=== PATIENT | male | born 1945 | race Caucasian/White ===

== ENCOUNTER 2016-09-12 16:41 | Inpatient (IN) ==
--- NOTE | 2016-09-12 21:17 | Diag Imaging Result Doc PS360 ---
EXAM: HEAD W/O CONTRAST TECHNIQUE: Dose reduction protocol was used. INDICATION: AMS, 3 PREV CVA COMPARISON: 04/01/2016 FINDINGS: There is stable encephalomalacia involving the right frontal lobe with adjacent ex vacuo dilatation of the right lateral ventricle. There is mild patchy low attenuation in the left frontal periventricular white matter suggesting mild microangiopathy, stable. There is no definite acute infarct given the limited sensitivity of CT versus MRI. There is no discrete intracranial mass, mass effect, or intracranial hemorrhage. The surrounding soft tissues and bony structures are essentially unremarkable. IMPRESSION: Stable chronic changes as described. No evidence of acute intracranial pathology. Electronically signed by Romel Cancino 09/12/2016 9:15 PM
[2016-09-12 21:38] LABS: MANUAL DIFF NEEDED? NO
[2016-09-12 21:40] LABS: BASO% 0.5 % (0.0-0.8); EOS# 0.15 X1000 (0.0-0.7); EOS% 2.7 % (0.0-10.0); HEMATOCRIT 38.5 % (42.0-52.0); HEMOGLOBIN 13.3 g/dL (14.0-18.0); LYMPH# 2.03 X1000 (1.2-3.4); LYMPH% 36.8 % (20.5-51.1); MCH 32.9 PG (27-31); MCHC 34.5 g/dL (33-37); MCV 95.3 FL (81-99); MONO% 9.1 % (1.7-9.3); MPV 9.3 FL (7.4-10.4); NEUT% 50.9 % (42.2-75.2); PLT 233 X1000 (130-400); RBC 4.04 XMIL (4.7-6.1)
[2016-09-12 21:49] LABS: INR 0.98; PROTIME 10.3 Seconds (9.2-11.7); PTT 28.7 Seconds (22.0-36.0)
[2016-09-12 22:04] LABS: CALCIUM 8.9 mg/dL (8.8-10.2); POTASSIUM 4.1 mmol/L (3.5-5.1); TOTAL BILIRUBIN 0.6 mg/dL (0.20-1.00); TOTAL PROTEIN 6.8 g/dL (6.3-8.3)
--- NOTE | 2016-09-12 23:00 | PROVIDER DOCUMENTATION ---
HPI-General Adult - General Chief Complaint: Fatigue Stated Complaint: HINDS,RT LOWER ABD PAIN Time Seen by Provider: 09/12/16 18:13 Source: patient Allergies/Adverse Reactions: Patient Allergies Allergy/AdvReac Type Severity Reaction Status Date / Time meperidine HCl * Allergy Unknown ANAPHYLAXIS Verified 09/12/16 19:46 [From Demerol] NSAIDS (Non-Steroidal AdvReac Unknown Verified 09/12/16 19:46 Anti-Inflamma Home Medications: Home Medication List Medication Instructions Recorded Confirmed Last Taken Type ATORVAstatin [Lipitor] 80 mg PO HS 03/25/12 09/12/16 09/11/16 History Methocarbamol 750 mg PO TID 03/25/12 09/12/16 09/11/16 History Tamsulosin HCl 0.4 mg PO QHS 03/25/12 09/12/16 09/11/16 History Potassium Chloride 10 meq PO DAILY #30 tablet.er 04/16/12 09/12/16 09/11/16 Rx Furosemide [Lasix] 20 mg PO DAILY 05/29/14 09/12/16 09/11/16 History Sucralfate [Carafate Liquid] 1 gm PO BID 07/27/14 09/12/16 09/11/16 History Latanoprost 0.005% Oph Soln 1 drop BOTH EYES HS 10/20/14 09/12/16 09/11/16 History [Xalatan 0.005% Oph Soln] Omeprazole 20 mg PO DAILY 04/02/16 09/12/16 09/11/16 History - History of Present Illness -Gen Adult Nature of Presenting Problems: Pt is a 71 y/o M c chief complaint of generalized fatigue and "growginess" x 1 day. Pt states that he had cold sweats last night then woke up this morning feeling fatigued. 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 He denies any new neuro focal weakness and his states he is normal in appearance and speech. Pt is concerned he may have had another CVA. On arrival, pt is in minimal distress. Review of Systems - Adult - REVIEW OF SYSTEMS - ADULT Constitutional: reports: see HPIalyce. denies: chills Eyes: reports: no symptoms reported. denies: blurred vision, double vision Ears, Nose, Mouth & Throat: reports: no symptoms reported. denies: ear pain, nose pain Cardiovascular: reports: no symptoms reported. denies: chest pain, orthopnea Respiratory: reports: no symptoms reported. denies: cough, shortness of breath , wheezing Gastrointestinal: reports: no symptoms reported. denies: abdominal pain, nausea Genitourinary: reports: no symptoms reported. denies: dysuria, hematuria Musculoskeletal: reports: no symptoms reported. denies: bone pain, joint pain Integumentary: reports: no symptoms reported. denies: mole changes, nail changes Neurological: reports: no symptoms reported. denies: numbness, paresthesia Psychiatric: reports: no symptoms reported. denies: anxiety, emotional problems Endocrine: reports: no symptoms reported. denies: cold intolerance, heat intolerance Hematologic/Lymphatic: reports: no symptoms reported. denies: blood clots, low blood count Allergic/Immunologic: reports: no symptoms reported. denies: allergic reactions , food allergy All Other Systems: Reviewed and Negative Past History - Adult - PAST MEDICAL HISTORY-ADULT Review of Records: reports: Old Records Reviewed, Nursing Assessment Review, Medications Reviewed, Social history reviewed & non-contributory. Major Childhood Illnesses: reports: denies history Cardiovascular: reports: aortic disease (AAA), CAD, HTN, hyperlipidemia Respiratory: reports: denies history Gastrointestinal: reports: other (abdominal aortic aneurysm) Obstetrical/Gynecological: reports: denies history Genitourinary: reports: kidney stones Musculoskeletal: reports: chronic pain (back pain), intervertebral disc disease Neurological: reports: CVA, other (vasovagal syncope) Endocrine/Immune: reports: denies history Other Conditions: reports: denies history - PRIOR SURGERIES/PROCEDURES Surgical/Procedure History: reports: appendectomy, CABG, cholecystectomy, orthopedic (extremity), other (AAA repair) - PRIOR HOSPITALIZATIONS Prior Hospitalizations: reports: for other non-related - IMMUNIZATION STATUS Childhood Immunizations: See Nurse Assessment Flu Vaccine: See Nurse Assessment - FAMILY HISTORY Family History: CAD over 55 yo, other (CHF) - SOCIAL HISTORY Smoking: denies Substance Use: none/never Alcohol Use Frequency: never Living Situation: family Physical Exam-General - PHYSICAL EXAM-ADULT Initial Vital Signs Reviewed: Yes - CONSTITUTIONAL General Appearance: alert, no apparent distress - EYES Eyes: PERRL/EOMI, pink conjunctivae - HEAD, EARS, NOSE, MOUTH & THROAT HENMT: normocephalic/atraumatic, moist mucous membranes, normal ENT inspection - NECK Neck: normal inspection - RESPIRATORY Respiratory: chest non-tender, lungs clear, normal breath sounds - CARDIOVASCULAR Cardiovascular: normal peripheral pulses, regular rate, rhythm - GASTROINTESTINAL (ABDOMEN) Abdominal Exam: normal bowel sounds, non tender, soft - LYMPHATIC Lymphatic: no adenopathy - MUSCULOSKELETAL Back Exam: normal inspection, no CVA tenderness, no vertebral tenderness Extremity: normal range of motion, non-tender, normal inspection - SKIN Integumentary: normal color, normal turgor, warm/dry - NEUROLOGIC Neurologic: grossly normal, no motor/sensory deficits - PSYCHIATRIC Psych/Mental Status: normal mood/affect, normal thought content, normal thought process, oriented x 3 Progress - PLAN OF CARE/RESULTS Progress/Plan/Lab Results: Vital Signs - 8 hr 09/12/16 16:48 Temperature 99.3 F Pulse Rate 64 Respiratory Rate 18 Blood Pressure 154/91 O2 Sat by Pulse Oximetry 97 Laboratory Results - last 24 hr 09/12/16 09/12/16 09/12/16 21:29 21:29 21:29 WBC 5.52 RBC 4.04 L Hgb 13.3 L Hct 38.5 L MCV 95.3 MCH 32.9 H MCHC 34.5 RDW Std Deviation 12.9 Plt Count 233 MPV 9.3 Immature Gran % (Auto) 0.0 Neut % (Auto) 50.9 Lymph % (Auto) 36.8 Wagoner % (Auto) 9.1 Eos % (Auto) 2.7 Baso % (Auto) 0.5 Immature Gran # (Auto) 0.00 Neut # (Auto) 2.81 Lymph # (Auto) 2.03 [place]agoner # (Auto) 0.50 Eos # (Auto) 0.15 Baso # (Auto) 0.03 PT INR PTT (Actin FS) Sodium 141 Potassium 4.1 Chloride 102 Carbon Dioxide 26 Anion Gap 13 BUN 15 Creatinine 1.4 H Estimated GFR/1.73 m2 50 BUN/Creatinine Ratio 11 Glucose 84 Calculated Osmolality 281 Calcium 8.9 Total Bilirubin 0.60 AST 15 ALT 19 Alkaline Phosphatase 68 Creatine Kinase 47 Troponin T Total Protein 6.8 Albumin 4.0 Globulin 2.8 Albumin/Globulin Ratio 1.4 Plasma/Serum Ethyl Alc 09/12/16 09/12/16 21:29 21:29 WBC RBC Hgb Hct MCV MCH MCHC RDW Std Deviation Plt Count MPV Immature Gran % (Auto) Neut % (Auto) Lymph % (Auto) [place]agoner % (Auto) Eos % (Auto) Baso % (Auto) Immature Gran # (Auto) Neut # (Auto) Lymph # (Auto) [place]er # (Auto) Eos # (Auto) Baso # (Auto) PT 10.3 INR 0.98 PTT (Actin FS) 28.7 Sodium Potassium Chloride Carbon Dioxide Anion Gap BUN Creatinine Estimated GFR/1.73 m2 BUN/Creatinine Ratio Glucose Calculated Osmolality Calcium Total Bilirubin AST ALT Alkaline Phosphatase Creatine Kinase Troponin T < 0.010 Total Protein Albumin Globulin Albumin/Globulin Ratio Plasma/Serum Ethyl Alc Orders Category Date Time Status Saline Loc NOW Care 09/12/16 20:22 Active CHEST-PORTABLE [RAD] Stat Exams 09/12/16 20:22 Taken HEAD W/O CONTRAST [CT] Stat Exams 09/12/16 20:22 Completed ALCOHOL BLOOD Stat Lab 09/12/16 21:29 Completed CBC WITH ELECTRONIC DIFF [HEME] Stat Lab 09/12/16 21:29 Completed CK PROFILE [SP CHEM] Stat Lab 09/12/16 21:29 Completed COMPREHENSIVE METABOLIC PANEL [CHEM] Stat Lab 09/12/16 21:29 Completed PROTIME WITH INR [COAG] Stat Lab 09/12/16 21:29 Completed PTT [COAG] Stat Lab 09/12/16 21:29 Completed TROPONIN T Stat Lab 09/12/16 21:29 Completed URINALYSIS W/POSS RFLX CULT-1 [URINALYSIS] Stat Lab 09/12/16 20:22 Uncollected URINE DRUG SCREEN Stat Lab 09/12/16 20:22 Uncollected Pulse Oximetry Stat Oth 09/12/16 20:22 Active EKG [EKG] Stat Ther 09/12/16 20:22 Ordered Result Diagrams: 09/12/16 21:29 09/12/16 21:29 - REASSESSMENT Reassessment #1 Time Reassessed: 22:59 (Pt c EKG showing sinus ericka at rate of 48.) Reassessment #2 Time Reassessed: 23:08 (Pt now c heart rate 42. He states he feels fatigued. After reviewing his records pt has been admitted for symptomatic bradycardia in March of this year and was evaluated by cardiology. He was taken off betablockers on discharge from the hospital. Discussed c Dr. English who agreed c admission. ) - CONSULTS/PCP/HOSPITALIST Notification #1 *Consult/PCP/Hospitalist*: Dr. Bernabe / Minor ALFARO (Hospitalist) Time Discussed: 23:28 Reason/Comments: Will admit pt and see in the ER. Departure - Departure Date of Disposition Decision: 09/12/16 Time of Disposition Decision: 23:27 DIAGNOSIS: Symptomatic bradycardia Disposition: ADMITTED INPATIENT 09 Certified Medical Emergency: Emergent Condition: Stable Referrals and Follow-Ups: Meño Nye MD [Primary Care Provider] - - Critical Care Note This patient required my direct & personal management of CC.: No Attestation - Physician/ THEA Attestation Patient care was provided by Advanced Practice Provider:: Yes Advanced Practice Provider:: Romel Hartman Advanced Practice Provider documentation review:: The Mid-level provider documentation, treatment plan and medical decision making was reviewed by the physician who agrees with all treatment and medical decision making by the MLP.
[2016-09-12 23:06] LABS: URINE CULTURE NEEDED? NO; URINE MICRO REVIEW NEEDED? NO; URINE SOURCE CLEAN CATCH
[2016-09-12 23:23] LABS: UR AMPHETAMINES QUAL NONE DETECTED (NONE DETECT); UR BARBITUATES QUAL NONE DETECTED (NONE DETECT); UR BENZODIAZEPIN QUAL NONE DETECTED (NONE DETECT); UR CANNABINOIDS QUAL NONE DETECTED (NONE DETECT); UR COCAINE QUAL NONE DETECTED (NONE DETECT); UR METHADONE QUAL NONE DETECTED (NONE DETECT); UR OPIATES QUAL NONE DETECTED (NONE DETECT); UR OXYCODONE QUAL NONE DETECTED (NONE DETECT); UR PCP QUAL NONE DETECTED (NONE DETECT)
[2016-09-12 23:28] LABS: BILIRUBIN URINE NEGATIVE (NEGATIVE); BLOOD URINE NEGATIVE (NEGATIVE); COLOR YELLOW; GLUCOSE URINE NEGATIVE (NEGATIVE); LEUKOCYTES URINE NEGATIVE (NEGATIVE); NITRITE URINE NEGATIVE (NEGATIVE); PH URINE 6.5; PROTEIN URINE NEGATIVE (NEGATIVE); SP GRAVITY URINE 1.015; TURBIDITY URINE CLEAR (CLEAR); UR EPITHELIAL CELLS <10 /HPF (<10); URINE BACTERIA NEGATIVE /HPF; URINE RBC <10 /HPF (<10); URINE WBC <10 /HPF (<10); UROBILINOGEN URINE NORMAL (NORMAL)
[2016-09-12] MEDS ORDERED: DUONEB (A & A) INH ONE (23:54)
[2016-09-13] MEDS ORDERED: NS 1,000 ML ONE (01:01)
[2016-09-13] MEDS: NS 1,000 ML IV SCH ×2 (01:15→20:42)
[2016-09-13] MEDS: LOVENOX SUBQ SCH ×2 (01:15→23:47)
--- NOTE | 2016-09-13 04:40 | HISTORY AND PHYSICAL ---
CHIEF COMPLAINT: Fatigue. PRIMARY CARE PROVIDER: Meño Nye MD EMBLEM DRAWER IN: Justin Orozco MD HISTORY OF PRESENT ILLNESS: Mr. Jane is a 71-year-old male who came in with a complaint of being groggy for the past day and states that he has had cold sweats that started last night. Woke up in the morning feeling fatigued. Went back to sleep. States that he woke up around December 10:30 this a.m. [place] as if he was "hungover." The patient denies drinking. 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 Left lower extremity weakness. Patient had his first stroke at age 17. He has also had coronary artery disease with CABG. Has other history of hypertension, hyperlipidemia, chronic kidney disease. At any rate, his laboratory data and CT scan on arrival to the emergency room were grossly normal. The CT was stable from previous examinations; however, an EKG showed sinus bradycardia with a rate of 42. He was admitted in March of this year for symptomatic bradycardia and all of his beta blockers were stopped. He will be admitted today for symptomatic bradycardia and placed on CICU for further monitoring. REVIEW OF SYSTEMS: Fourteen point review of systems conducted with the patient. Pertinent positives listed above in the HPI. All other systems reviewed and found to be negative. PAST MEDICAL HISTORY: 1. Coronary artery disease status post CABG in 2008. 2. AAA with subsequent repair. 3. Hypertension. 4. Hyperlipidemia. 5. Multiple CVAs, the first being at 17 with left-sided paralysis that has somewhat resolved. Left upper extremity does have some contracture. Left lower extremity is weakened, and a mild left-sided facial droop. 6. Kidney stones. 7. Chronic kidney disease. 8. GI bleed from large duodenal ulcer. 9. BPH. PREVIOUS SURGICAL HISTORY: 1. Cholecystectomy. 2. Back surgery. 3. Orthoscopic knee surgery. 4. Cervical spine surgery. 5. Triple A repair in 2006. 6. CABG 2008. SOCIAL HISTORY: Former smoker from teenage years, 1-3 packs of cigarettes per day. Stopped smoking in 2002. Did drink alcohol regularly when he was younger. Has not drank since then and he only used alcohol for roughly 4 years. 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 Currently lives with his mother, I believe. FAMILY HISTORY: Mother had a CVA as well as CVA maternal and paternal grandparents, and coronary artery disease in mother and father. ALLERGIES: Demerol and NSAIDs. HOME MEDICATIONS: 1. Lipitor 80 mg p.o. at bedtime. 2. Methocarbamol 750 mg p.o. t.i.d. 3. Flomax 0.4 mg p.o. at bedtime. 4. Potassium chloride 10 mEq p.o. daily. 5. Lasix 20 mg p.o. daily. 6. Carafate 1 g p.o. daily. 7. Xalatan 0.005 ophthalmic solution 1 drop both eyes at bedtime. 8. Omeprazole 20 mg p.o. daily. PHYSICAL EXAMINATION: VITAL SIGNS: Temp 97.4 degrees, pulse 42, respirations 18, blood pressure 169/ 74, oxygen saturation 100% on room air. GENERAL: A pleasant, 71-year-old male lying in the ER stretcher. No acute distress. Answers all questions appropriately. HEENT: Head is atraumatic, normocephalic. Pupils equal, round, reactive to light. Extraocular eye movement intact. Sclerae anicteric. Oral mucosa is moist. NECK: Supple. No JVD. No carotid bruit. No thyromegaly. Trachea is midline. CARDIAC: Regular rhythm. Sinus bradycardia on monitor. S1-S2 appreciated. No murmurs, gallops, rubs. LUNGS: Clear to auscultation bilaterally. No rhonchi, wheezes or rales. ABDOMEN: Soft, nondistended, nontender. Bowel sounds present in all 4 quadrants. Normoactive. No pulsatile mass. No organomegaly. EXTREMITIES: No clubbing, cyanosis, or edema. Two plus pedal pulses bilaterally. INTEGUMENTARY: Warm dry and intact. No acute lesions or rash. NEUROLOGICAL: Alert and oriented x3. Mild chronic left-sided facial droop is barely noticeable. Left upper extremity is mildly contractured from previous CVA. Left lower extremity weakness, which is again, chronic. DIAGNOSTIC DATA: CT of the head, stable from previous examination. EKG sinus bradycardia, rate in the 40s. WBC 5.52, hemoglobin 13.3, hematocrit 38.5, platelet count 233,000. Coagulation studies within normal limits. Chemistry panel within normal limits other than a creatinine of 1.4. Urine unremarkable. Toxicology screen and alcohol is negative. ASSESSMENT AND PLAN: 1. Symptomatic bradycardia. Heart rate in the 40s. Patient noted fatigue and dizziness. Blood pressure remains within normal limits. We will order telemetry, place on CICU. We will give an albuterol treatment. Consult Cardiology. As noted, he has been taken off all of his beta blockers. Trend cardiac enzymes. Repeat an EKG in the a.m. We will stop methocarbamol as it can cause bradycardia. 2. Dizziness and fatigue, likely secondary to #1. Again, we will stop Robaxin. 3. Chronic kidney disease 3A. We will give gentle fluid hydration. Normal saline at 50 mL an hour overnight, then continue patient's 20 mg daily Lasix in a.m. 4. Hyperlipidemia. Continue Lipitor 80 mg p.o. daily. 5. Coronary artery disease. Aware. Noted above, Cardiology has been consulted. Further recommendations per patient clinical course. Dictated by DOMINIC Jason for Carleen Bernabe MD Seen,examined and discussed case with DRY CLEANING CHECKER. cc: DOMINIC Jason MD Amit V. Vora, MD Luis N. Villanueva, MD [facility]ORT[facility] MEDICAL CENTERJosselyn
--- NOTE | 2016-09-13 05:40 | EKG Report ---
Test Performed on : 09/12/2016 10:06:04 PM Test Reason : OFF BALANCE Blood Pressure : / mmHG Vent. Rate : 048 BPM Atrial Rate : 048 BPM P-R Int : 174 ms QRS Dur : 084 ms QT Int : 458 ms P-R-T Axes : 046 010 043 degrees QTc Int : 409 ms Sinus bradycardia. Junctional ST depression, probably normal Borderline ECG When compared with ECG of 01-APR-2016 22:57, No significant change was found Unconfirmed Result
[2016-09-13 05:46] LABS: MANUAL DIFF NEEDED? NO
[2016-09-13 05:58] LABS: BASO% 0.9 % (0.0-0.8); EOS# 0.15 X1000 (0.0-0.7); EOS% 2.8 % (0.0-10.0); HEMATOCRIT 38.2 % (42.0-52.0); HEMOGLOBIN 13.1 g/dL (14.0-18.0); LYMPH# 1.87 X1000 (1.2-3.4); LYMPH% 35.2 % (20.5-51.1); MCH 32.7 PG (27-31); MCHC 34.3 g/dL (33-37); MCV 95.3 FL (81-99); MONO# 0.46 X1000 (0.11-0.59); MONO% 8.7 % (1.7-9.3); MPV 9.4 FL (7.4-10.4); NEUT% 52.4 % (42.2-75.2); PLT 229 X1000 (130-400); RBC 4.01 XMIL (4.7-6.1)
--- NOTE | 2016-09-13 06:24 | EKG Report ---
Test Performed on : 09/13/2016 06:15:16 AM Test Reason : chest pain Blood Pressure : / mmHG Vent. Rate : 044 BPM Atrial Rate : 044 BPM P-R Int : 222 ms QRS Dur : 110 ms QT Int : 482 ms P-R-T Axes : 071 031 053 degrees QTc Int : 412 ms Marked sinus bradycardia. with 1st degree AV block. Abnormal ECG When compared with ECG of 12-SEP-2016 22:06, (Unconfirmed) MN interval has increased ST no longer depressed in Inferior leads Confirmed by Josy Justice MD ([id number]) on 09/13/2016 1:07:48 PM
[2016-09-13 06:28] LABS: CALCIUM 9.2 mg/dL (8.8-10.2); MAGNESIUM 2.2 mg/dL (1.5-2.7); POTASSIUM 4.2 mmol/L (3.5-5.1)
[2016-09-13] MEDS: PRILOSEC PO SCH (07:00)
--- NOTE | 2016-09-13 07:48 | Diag Imaging Result Doc PS360 ---
EXAM: CHEST-PORTABLE HISTORY: AMS TECHNIQUE: AP portable upright at 2034 COMMENT: There is a granuloma in the left upper lobe. There is no evidence of acute pulmonary disease and compared to 04/01/2016 there has been no significant change. IMPRESSION: Stable chest. Electronically signed by Jose Naranjo 09/13/2016 7:45 AM
[2016-09-13] MEDS ORDERED: LASIX PO SCH (09:00)
[2016-09-13] MEDS ORDERED: KLOR-CON PO SCH (09:00)
--- NOTE | 2016-09-13 09:19 | PROGRESS NOTE ---
DATE: 09/13/2016 Mr. Jane was admitted last night for symptomatic bradycardia. He says he was in bed and he started sweating profusely and had generalized weakness. This morning, his heart rate is still 44. The laboratory data reveals normal CBC. Electrolytes are normal. BUN 17, creatinine 1.4. Troponin is negative. His chest x-ray was unremarkable. The EKG revealed sinus bradycardia with some ST-depression. No change from a previous EKG on 04/01/2016. The bradycardia is significant. He is being evaluated by a drupal programmer and he wants to get the pacemaker put in. We will have to wait after further studies. cc: Meño Nye MD
--- NOTE | 2016-09-13 10:58 | CONSULTATION ---
DATE OF CONSULTATION: 09/13/2016 REASON FOR CONSULTATION: Cardiology was consulted for dizziness and fatigue. HISTORY OF PRESENT ILLNESS: Mr. Jane is a 71-year-old, gentleman with known coronary artery disease, AAA repair, hypertension, hyperlipidemia, CVAs in the past. Has had bradycardia. Has an implantable loop recorder in place. He complains of having noticed fatigue and dizziness. Went back to sleep. Woke up in the morning. [place] as if he was hung over. He denies any alcohol abuse. Came to the emergency room, was admitted. He was last admitted in March 2016 with a near syncopal episode. Has chronic bradycardia. In the meantime, since he was admitted on 2 occasions, he has seen Dr. Orozco in the office and his main problem, in addition to the extensive cardiac history, has been episodes of dizziness. The loop monitor implantable noted heart rates in the 30s and 40s. He is admitted. His electrocardiogram revealed a heart rate of 44 beats per minute. He is not on any beta blockers. He denies chest pain. REVIEW OF SYSTEMS: A 14 point review of systems was done. GI System: There is no history of nausea, vomiting, or diarrhea. There is no history of hematemesis or melena. Central Nervous System: No focal weakness to suggest a CVA or TIA. Genitourinary System: There is no dysuria or hematuria. Respiratory System: There is no history of cough, expectoration, hemoptysis. There is no history of fevers or chills. PAST MEDICAL HISTORY: 1. Coronary artery disease, status post coronary artery bypass grafting 05/06/2008, FOSTER to left anterior descending artery, SVG to OM 2, SVG to PDA. 2. Bradycardia. 3. An episode of near-syncope and dizziness. 4. Hypertension. 5. Hyperlipidemia. 6. Left-sided CVA. 7. Implantable loop recorder placed, [employer], 07/26/2014. MRI brain 07/28/2014, old infarct in the right parietal lobe. 8. Abdominal aortic aneurysm, status post repair 04/08/2012. 9. Renal insufficiency. 10. GI bleed 05/29/2014, duodenal, also cauterized. 11. Back pain. OTHER SURGERIES: 1. Cholecystectomy. 2. Back surgery. 3. Orthoscopic knee surgery. 4. Cervical spine surgery. 5. Last cardiac catheterization was in 2013, 01/27/2014. FOSTER to LAD 100% occluded, vein graft to OM patent, vein graft to PDA patent. Medical treatment recommended. The left anterior descending artery shows aneurysmal just prior to the origin of the septal LAD, narrows down to 50% after the anastomosis with FOSTER. No significant stenosis. The graft is occluded. Circumflex proximal normal. Other vessels occluded. 6. His last ejection fraction by echocardiogram was in 2014, revealed ejection fraction of 55- 60%. HOME MEDICATIONS: 1. Atorvastatin 80. 2. Methocarbamol. 3. Tamsulosin. 4. Potassium chloride. 5. Furosemide 20. 6. Sucralfate 1 g p.o. b.i.d. 7. Dorzolamide. 8. Aspirin enteric-coated 81 mg a day. 9. Omeprazole 20. SOCIAL HISTORY: Former smoker since teenage years, 1-3 packs of cigarettes a day. Stop smoking 2012. He does not drink at the moment. As a younger person, he drank regularly. FAMILY HISTORY: Mother had CVA as well as coronary artery disease. ALLERGIES: He is allergic to NSAIDs and meperidine. PHYSICAL EXAMINATION: Vital Signs: Blood pressure 127/68. Cardiovascular System: Normal jugular venous pressure. There is no thyromegaly. There is no carotid bruit. First and second heart sounds were heard. There is no S3 gallop. Respiratory System: Normal air entry. There are no crepitations or rhonchi. Abdomen: Soft, nontender. There was no guarding or rigidity. Bowel sounds were heard. Central Nervous System: Moving all 4 extremities. Mild left facial droop noticeable. Detailed central nervous system examination not performed. There was left extremity weakness. LABORATORY EXAMINATION: Sodium 142, potassium 4.2, BUN 17, creatinine 1.4. Cardiac enzymes were negative. Hemoglobin 13.1, hematocrit 38, platelet count of 229,000. Other reports, chest x-ray and head CT were done which show no acute pathology noted. ASSESSMENT AND PLAN: Mr. Chava Jane is a 71-year-old, gentleman with a history of coronary artery disease, status post coronary artery bypass grafting, hypertension, hyperlipidemia, cerebrovascular accident in the past, abdominal aorta aneurysm status post repair, is admitted with feeling groggy, dizziness. The were no sonal syncopal episode this time. From a cardiac standpoint: 1. He has had episodes of dizziness. He has an implantable loop recorder. Heart rates in the 30s and 40s. He is not on any beta blockers or agents which can cause bradycardia. He came in with a near syncopal episode in March and has occasional episodes of dizziness. He does have these dizzy episodes as well intermittently. I will discuss with electrophysiology regarding placement of a permanent pacemaker given his multiple medical problems and including all the vascular pathology he has had or consideration for electrophysiology studies. 2. For hypertension, his blood pressure is under control. I have not made any changes. He has had a stroke. He is on aspirin. I have not made any changes. 3. He has gastric duodenal ulcers in the past. He is on sucralfate. I have not made any other changes to his medications. 4. We will get an echocardiogram to assess cardiac and valvular function. Thank you for the consult. We will follow hospital course. cc: MD Meño Skaggs MD
[2016-09-13] MEDS ORDERED: FLOMAX PO SCH (21:00)
[2016-09-13] MEDS ORDERED: LIPITOR PO SCH (21:00)
[2016-09-13] MEDS ORDERED: XALATAN 0.005% OPH SOLN BOTH EYES SCH (21:00)
[2016-09-13] MEDS ORDERED: ALPHAGAN P 0.15% OPHTH SOLN BOTH EYES SCH (21:45)
[2016-09-13] MEDS ORDERED: ALPHAGAN 0.2% OPHTH SOLN BOTH EYES SCH (22:15)
[2016-09-14] MEDS ORDERED: ALPHAGAN 0.2% OPHTH SOLN BOTH EYES ONE (01:45)
[2016-09-14] MEDS: PRILOSEC PO SCH (06:00)
--- NOTE | 2016-09-14 07:33 | EKG Report ---
Test Performed on : 09/14/2016 06:07:56 AM Test Reason : bradycardia Blood Pressure : / mmHG Vent. Rate : 057 BPM Atrial Rate : 057 BPM P-R Int : 216 ms QRS Dur : 102 ms QT Int : 440 ms P-R-T Axes : 065 031 064 degrees QTc Int : 428 ms Sinus bradycardia. with 1st degree AV block. Otherwise normal ECG When compared with ECG of 13-SEP-2016 06:15, No significant change was found Confirmed by Josy Justice MD ([id number]) on 09/14/2016 9:13:49 AM
[2016-09-14 07:47] VITALS: BP 124/70
[2016-09-14] MEDS ORDERED: COSOPT OPHTH SOLN BOTH EYES SCH (09:00)
--- NOTE | 2016-09-14 10:56 | ECHO REPORT ---
ORDER DATE: 09/13/2016 MEASUREMENTS: 1. Left ventricular end-diastolic diameter 4.6. 2. End systolic diameter 3.7. 3. Septal thickness 1.0. 4. Posterior wall thickness 1.1. 5. Left atrium 5.0. 6. Aortic root 3.9. SUMMARY: 1. Fair quality study. 2. Aortic valve is trileaflet and opens normally on 2-dimensional images. There is trace aortic regurgitation. Mitral, tricuspid, and pulmonic valves are without structural abnormality with mild mitral regurgitation, mild tricuspid regurgitation, and trace pulmonic insufficiency. The estimated systolic PA pressure by Doppler is 25-30 mmHg. The aortic root is borderline enlarged. 3. Normal left ventricular dimensions demonstrated. Estimated left ventricular ejection fraction appears to be approximately 50%. No regional wall motion abnormalities evident. Left atrium is mildly to moderately enlarged. Right atrium and right ventricle are normal size, with normal right ventricular systolic function. 4. No pericardial effusion. 5. Appearance of inferior vena cava suggests normal central venous pressure. 6. Sinus bradycardia during study. CONCLUSIONS: 1. Mild mitral regurgitation. 2. Mild tricuspid regurgitation with estimated systolic PA pressure of 25-30 mmHg. 3. Estimated left ventricular ejection fraction approximately 50%. 4. Mild to moderate left atrial enlargement. 5. Borderline aortic root enlargement. cc: MD Karen Lopez PA Amit V. Vora, MD
--- NOTE | 2016-09-15 08:26 | DISCHARGE SUMMARY ---
ADMISSION DATE: 09/13/2016 DISCHARGE DATE: 09/14/2016 HISTORY OF PRESENT ILLNESS: Mr. Jane was admitted with severe bradycardia, which was asymptomatic. He had severe weakness, some shortness of breath. LABORATORY/IMAGING DATA: In the hospital, CBC revealed mild anemia with hemoglobin 13.1. Electrolytes are normal. Creatinine was 1.4, troponin was negative. Urinalysis was negative. The EKG had revealed sinus bradycardia with first-degree AV block. CT scan of the brain revealed stable chronic changes. No evidence of acute intracranial pathology. He had mild encephalomalacia at the right frontal lobe. COURSE IN THE HOSPITAL: He was seen by community health consultant Dr. Carias. So, he had symptomatic bradycardia. Dr. Carias discussed with the community health consultant in [place], and he agreed to have pacemaker implant. The patient was transferred to [facility] this morning for pacemaker insertion. FINAL DIAGNOSES: 1. Severe symptomatic sinus bradycardia. 2. Hypertension. cc: Meño Nye MD
== END 2016-09-14 07:45 | disposition short-term general hospital (02) ==
LOC: ED 16:41 → SUATTDRO 09-13 00:15 → EDIPHOLD 09-13 00:15 → 3S 09-13 07:59
PROVIDERS: ADMIT Internal Medicine; ATTEND Internal Medicine

== ENCOUNTER 2018-04-06 22:38 | Inpatient (IN) ==
[2018-04-06 23:30] LABS: BASO# 0.04 X1000 (0.0-0.2); BASO% 0.6 % (0.0-0.8); EOS# 0.06 X1000 (0.0-0.7); EOS% 0.9 % (0.0-10.0); HEMATOCRIT 38.4 % (42.0-52.0); IMM GRAN# 0.02 X1000 (0.0-0.04); IMM GRAN% 0.3 % (0.0-0.5); LYMPH# 1.37 X1000 (1.2-3.4); LYMPH% 20.3 % (20.5-51.1); MCH 31.6 PG (27-31); MCHC 33.9 g/dL (33-37); MCV 93.2 FL (81-99); MONO# 0.52 X1000 (0.11-0.59); MONO% 7.7 % (1.7-9.3); MPV 9.2 FL (7.4-10.4); NEUT# 4.74 X1000 (1.4-6.5); NEUT% 70.2 % (42.2-75.2); PLT 280 X1000 (130-400); RBC 4.12 XMIL (4.7-6.1); RDW 13.4 % (11.5-14.5); WBC 6.75 X1000 (4.8-10.8)
[2018-04-06 23:44] LABS: ALB/GLOB RATIO 1.6; ALBUMIN 4.2 g/dL (3.5-5.0); CALCIUM 8.8 mg/dL (8.8-10.2); CREATININE 1.4 mg/dL (0.7-1.2); POTASSIUM 4.3 mmol/L (3.5-5.1); TOTAL BILIRUBIN 0.48 mg/dL (0.20-1.00); TOTAL PROTEIN 6.9 g/dL (6.3-8.3)
[2018-04-07 01:35] LABS: URINE SOURCE CATH
[2018-04-07 01:56] LABS: BILIRUBIN URINE NEGATIVE (NEGATIVE); BLOOD URINE NEGATIVE (NEGATIVE); COLOR YELLOW; GLUCOSE URINE NEGATIVE (NEGATIVE); KETONE URINE NEGATIVE (NEGATIVE); LEUKOCYTES URINE NEGATIVE (NEGATIVE); NITRITE URINE NEGATIVE (NEGATIVE); PH URINE 6.5; PROTEIN URINE TRACE mg/dL (NEGATIVE); SP GRAVITY URINE 1.024; TURBIDITY URINE CLEAR (CLEAR); UR EPITHELIAL CELLS <10 /HPF (<10); URINE BACTERIA NEGATIVE /HPF; URINE RBC <10 /HPF (<10); URINE WBC <10 /HPF (<10); UROBILINOGEN URINE 2 mg/dL (NORMAL)
[2018-04-07 03:07] LABS: ALLEN TEST YES; BE 3.5 mmoll (-3.0-3.0); BLOOD TYPE ARTERIAL; HCO3-(ACT) 27.6 mmoll (20.0-26.0); METHB 1.6 % (0.0-1.5); O2(CT) 16.5 mL/dL (15.0-23.0); O2HB 95.4 % (95.0-99.0); PCO2(98.6) 44 mmHg (35-45); PO2(98.6) 94 mmHg (60-100); SAMPLE BLOOD; SAO2 98.6 % (95.0-100.0); THB 12.2 g/dL (11.5-17.4); pH(98.6) 7.42 (7.35-7.45)
[2018-04-07 03:08] LABS: MODALITY CANNULA
--- NOTE | 2018-04-07 05:26 | HISTORY AND PHYSICAL ---
PRIMARY CARE PHYSICIAN: Dr. Nye. CHIEF COMPLAINT: Chest pain. HISTORY OF PRESENTING ILLNESS: A 73-year-old male with a history of coronary artery disease, AAA, BPH, and CVA who had presented to emergency department with one-day history of having chest pain. He describes it as dull, and states that he was short of breath with minimal exertion. The patient was seen in the ED, and due to his presenting symptoms he will need admission for further management. At the time of my examination, he had denied any headache, vision changes, fevers, chills, nausea, vomiting, diarrhea, hemoptysis, melena, weight changes, but complained of chest pain and shortness of breath. PAST MEDICAL HISTORY: Includes left footdrop, hyperlipidemia, coronary artery disease, AAA, BPH, and CVA with left-sided deficit. PAST SURGICAL HISTORY: Coronary bypass, appendectomy, AAA repair, back surgery, cholecystectomy, cervical fusion, left knee, hip and foot surgery and left eye surgery. ALLERGIES: Demerol and NSAIDs. MEDICATIONS: Current medications include: 1. Atorvastatin 80 mg p.o. daily. 2. Lasix 20 mg p.o. daily. 3. Flomax 0.4 mg p.o. daily. 4. KCl 10 mEq po daily. 5. Finasteride 5 mg p.o. at bedtime. 6. Ranitidine 150 mg p.o. b.i.d. 7. Sucralfate 1 g p.o. b.i.d. SOCIAL HISTORY: He is a former smoker. Denies any history of alcohol or illicit drug use. FAMILY HISTORY: Positive for coronary artery disease in mother and father. REVIEW OF SYSTEMS: Fourteen point review of systems is as in HPI. Other systems negative. PHYSICAL EXAMINATION: GENERAL: Cooperative friendly male. He is resting comfortably now. VITAL SIGNS: Temperature 97.9 degrees, pulse 74, respirations 22, and blood pressure 166/66. HEENT: Atraumatic, normocephalic. Extraocular movements intact. PERRLA. NECK: Supple. CHEST: Clear to auscultation. CARDIOVASCULAR: Regular rate and rhythm. ABDOMEN: Soft. Positive bowel sounds. EXTREMITIES: No edema. He has left foot drop with a brace on. : No bladder distention. SKIN: Warm. LABORATORIES AND STUDIES: WBC 6.75, hemoglobin 13.1, hematocrit 38.4 and platelets 280,000. Sodium 139, potassium 4.3, chloride 100, CO2 25, BUN of 17, creatinine is 1.4 and glucose 107. ASSESSMENT: A 73-year-old male with a history of coronary disease, hyperlipidemia, and previous CVA who had presented to emergency department with complaint of chest pain. We will place the patient for observation for further evaluation and management. 1. Chest pain. 2. Coronary artery disease. 3. Hyperlipidemia. 4. Gastroesophageal reflux disease. 5. History of cerebrovascular accident. PLAN: 1. We will admit patient to medical floor with telemetry. 2. Continue with cardiac workup. Check EKG and serial cardiac enzymes. Have patient continue on aspirin. We will use sublingual nitroglycerin and morphine p.r.n. chest pain. 3. We will consult Cardiology. 4. We will check lipid profile. 5. Restart other home medications. 6. Place patient on DVT prophylaxis with heparin. 7. We will continue to follow and reassess, and make further recommendations based on the patient's clinical course. cc: Luis F Freeman MD
[2018-04-07] MEDS ORDERED: ZOFRAN IV PRN (05:35)
--- NOTE | 2018-04-07 07:26 | Diag Imaging Result Doc PS360 ---
EXAM: CHEST-1 VIEW HISTORY: chest pain TECHNIQUE: Chest single view COMPARISON: 01/29/2017 FINDINGS: The lungs are well expanded. The heart is not enlarged. There are sternal wires and surgical clips and a left-sided pacemaker. The vessels are not distended. There are no infiltrates. No effusion identified. 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 Old injury to the left clavicle. IMPRESSION: No acute abnormality. Electronically signed by Sebastian Madrigal 04/07/2018 7:24 AM
--- NOTE | 2018-04-07 09:10 | EKG Report ---
Test Performed on : 04/06/2018 10:57:41 PM Test Reason : cp Blood Pressure : / mmHG Vent. Rate : 066 BPM Atrial Rate : 066 BPM P-R Int : 162 ms QRS Dur : 100 ms QT Int : 414 ms P-R-T Axes : 062 033 072 degrees QTc Int : 434 ms Normal sinus rhythm. with sinus arrhythmia. Normal ECG When compared with ECG of 30-SEP-2017 14:30, Sinus rhythm. has replaced Atrial fibrillation. Unconfirmed Result
--- NOTE | 2018-04-07 09:45 | PROGRESS NOTE ---
DATE: 04/07/2018 Mr. Jane was admitted with chest pain. He had tightness in the chest. So far, cardiac enzymes have been negative. He has a permanent pacemaker. His lungs are clear. Heart sounds are normal. Abdomen is soft, nontender. EKG shows sinus arrhythmia. Otherwise, it is negative. Blood gases are really unremarkable. Electrolytes are normal. Troponin is 0.01. ProBNP is 88. We will continue with the current management. He has a cardiology consult. -6 cc: Meño Nye MD
--- NOTE | 2018-04-07 11:09 | CARDIOLOGY CONSULTATION ---
DATE: 04/07/2018 REASON FOR STUDY: Cardiology was consulted for chest pain. HISTORY OF PRESENT ILLNESS: A 73-year-old, gentleman with coronary artery disease, coronary artery bypass grafting, AAA repair, CVA in the past. He comes in with complaints of having shortness of breath, some minimal cough with some expectoration. He has also felt feverish. As far as chest pains are concerned, he had chest discomfort a day before he came to the emergency room. He was admitted and cardiac enzymes were negative. Electrocardiogram revealed normal sinus rhythm, normal EKG. Prior to this, his exercise capacity was limited. He has not had exertional component of chest pain. There is no orthopnea or paroxysmal nocturnal dyspnea. PAST MEDICAL HISTORY: 1. CVA. 2. Left footdrop. 3. Hyperlipidemia. 4. AAA status post repair. 5. Coronary artery disease, status post coronary artery bypass grafting with FOSTER to left anterior descending artery, SVG to OM2, SVG to PDA on 07/07/2008. Last cardiac catheterization 01/27/2014 revealed FOSTER to left anterior descending artery was occluded and grafts SVG to PDA and SVG to OM2 were patent. 6. History of syncope, status post [employer] pacemaker implanted in 2017. 7. History of sick sinus syndrome. 8. History of GI bleed, status post cauterization of duodenal ulcer on 05/29/2014. HOME MEDICATIONS: Ranexa 1000 mg b.i.d., Lipitor 80, Lasix 20, fish oil, multivitamins, omeprazole, sucralfate timolol eyedrops, latanoprost eyedrops, finasteride, methocarbamol, tamsulosin. ALLERGIES: He is allergic to Demerol and NSAIDs. REVIEW OF SYSTEMS: A 14-point review of system was done. PHYSICAL EXAMINATION: Vital Signs: Blood pressure 128/83. Heart: First and second heart sounds were heard. Jugular venous pressure was normal. There were no murmurs. There were no gallops. Respiratory: Normal air entry. There are no crepitations or rhonchi. Abdomen: Soft, nontender. There was no guarding or rigidity. Bowel sounds were heard. Central nervous System: Detailed central nervous system exam not performed. Alert and oriented, moving all 4 extremities. He had weakness in his left leg. DIAGNOSTIC STUDIES: Electrocardiogram revealed normal sinus rhythm. There were no ST-T changes to suggest ischemia. ASSESSMENT: Mr. Chava Jane is a 73-year-old gentleman with a history of coronary artery disease and coronary artery bypass grafting, sick sinus syndrome, status post [employer] pacemaker implantation 09/14/2016, abdominal aortic aneurysm repair, and cerebrovascular accident in the past. He comes in with complaints of having cough with some mucoid to occasional mucopurulent expectoration with chest pain. From a cardiac standpoint, he has ruled out for myocardial infarction by cardiac enzymes. PLAN: 1. We will add beta-blockers to his medical regimen. 2. Will rule out ischemia with the Lexiscan Cardiolite stress test. 3. Get an echocardiogram to assess cardiac and valvular function. As far as his chest pains are concerned, and shortness of breath, he has had CABG. Last cardiac catheterization in 2013 revealed FOSTER was occluded. Will make sure there is no ischemia. Will plan for testing as above. In addition, I will add beta-blockers to his medical regimen. cc: MD Meño Skaggs MD
[2018-04-07] MEDS ORDERED: LEXISCAN ONE (13:20)
--- NOTE | 2018-04-07 17:29 | Diag Imaging Result Document ---
PROCEDURE NAME: MYOCARDIAL PERF SCAN, STR/REST - 04/07/2018 INDICATION: Chest pain, coronary heart disease, previous bypass. DESCRIPTION OF PROCEDURE: The patient came into the nuclear lab, received rest injection of technetium 99m sestamibi 14.3 mCi. Multiple tomographic views of the cardiac structures were obtained at rest. Subsequently, the patient underwent infusion of Lexiscan 0.4 mg at peak infusion was injected with technetium-99 sestamibi 42.7 mCi. Multiple tomographic views of the cardiac structures were obtained following the completion of the protocol. SUMMARY OF ELECTROCARDIOGRAPHIC PORTION OF STUDY: Electrocardiographic response to perfusion Lexiscan is deemed to be negative for ischemia. SUMMARY OF THE MYOCARDIAL PERFUSION PORTION OF THE STUDY: Poststress tomographic views of the left ventricle showed normal homogenous extravasation of radiotracer throughout the entire left ventricular myocardium. There is no convincing evidence of any postexercise defect. Resting images showed normal perfusion. The polar plot revealed the same. There is no evidence of neither inducible ischemia nor myocardial scar. Gated SPECT shows normal left ventricular systolic function. Ejection fraction estimated at 62% with normal ventricular volumes and no wall motion abnormality. The lung/heart duration was normal. The TID is normal. IMPRESSION: In summary, this study shows: 1. Normal electrocardiographic response to infusion of Lexiscan. 2. Normal poststress myocardial perfusion scan. There is no scintigraphic evidence of pharmacologically induced myocardial ischemia. 3. Normal left ventricular systolic function with ejection fraction estimated at 62% with normal left ventricular volumes and no wall motion abnormality The study represents low risk for ischia. Clinical correlation is recommended. cc: MD Karen Gottlieb PA MTDD
[2018-04-07] MEDS: ALPHAGAN P 0.1% OPHTH SOLN RIGHT EYE SCH (20:53)
[2018-04-07] MEDS: COSOPT OPHTH SOLN RIGHT EYE SCH (20:53)
[2018-04-07] MEDS: XALATAN 0.005% OPH SOLN BOTH EYES SCH (20:54)
[2018-04-07] MEDS: FLOMAX PO SCH (20:54)
[2018-04-07] MEDS: LIPITOR PO SCH (20:54)
[2018-04-07] MEDS: CARAFATE LIQUID PO SCH (20:55)
[2018-04-07] MEDS: RANEXA PO SCH (20:55)
[2018-04-08 06:59] LABS: BASO# 0.03 X1000 (0.0-0.2); BASO% 0.5 % (0.0-0.8); EOS# 0.14 X1000 (0.0-0.7); EOS% 2.5 % (0.0-10.0); HEMATOCRIT 35.8 % (42.0-52.0); HEMOGLOBIN 11.7 g/dL (14.0-18.0); LYMPH# 1.99 X1000 (1.2-3.4); LYMPH% 35.3 % (20.5-51.1); MCH 31.2 PG (27-31); MCHC 32.7 g/dL (33-37); MCV 95.5 FL (81-99); MONO% 7.1 % (1.7-9.3); MPV 9.3 FL (7.4-10.4); NEUT# 3.07 X1000 (1.4-6.5); NEUT% 54.6 % (42.2-75.2); PLT 253 X1000 (130-400); RBC 3.75 XMIL (4.7-6.1); RDW 13.5 % (11.5-14.5); WBC 5.63 X1000 (4.8-10.8)
[2018-04-08 07:32] LABS: CALCIUM 8.7 mg/dL (8.8-10.2); CREATININE 1.3 mg/dL (0.7-1.2); POTASSIUM 4.3 mmol/L (3.5-5.1)
--- NOTE | 2018-04-08 07:56 | ECHO REPORT ---
ORDER DATE: 04/07/2018 INTERPRETING PHYSICIAN: Dr. Orozco CLINICAL INDICATIONS: 73-year-old male with chest pain, dizziness, hypertension. M-MODE MEASUREMENTS: Left ventricle end diastole: 3.7 cm. Left ventricle end systole: 2.3 cm. Posterior wall: 1.3 cm. Interventricular septum: 1.3 cm. Left atrium: 3.9 cm. Aortic root: 4.1 cm. SUMMARY OF 2-DIMENSIONAL IMAGING: The left ventricular systolic function is normal. Ejection fraction is estimated at 55%. No wall motion abnormality is noted. The right ventricle appears to be normal. Aortic valve is normal. Color flow mapping unremarkable. Mitral valve shows mild degree of regurgitation. Pulse wave Doppler of mitral inflow shows normal E/A ratio. Tissue Doppler of septal and lateral mitral annulus averages 8 cm per second. Pulmonary venous flow is normal. The tricuspid valve shows mild degree of regurgitation. The pulmonic pressure is estimated at 27-32 mmHg. Pulmonic valve is normal. Color flow mapping unremarkable. There is no pericardial effusion, mass and no thrombus. The atria do not appear to be particularly enlarged nor are the right-sided chambers. There is a question of pacemaker lead within the right-sided chamber. SUMMARY: This study shows 1. Normal left ventricular systolic function with ejection fraction of 55%. 2. No diastolic dysfunction. 3. Mild degree of tricuspid regurgitation with a pulmonary pressure of 27-32 mmHg. 4. Mild degree of mitral regurgitation with no diastolic dysfunction. Clinical correction recommended. cc: MD Karen Gottlieb PA Amit V. Vora, MD
[2018-04-08] MEDS: PROSCAR PO SCH (08:44)
[2018-04-08] MEDS: RANEXA PO SCH ×2 (08:44→20:07)
[2018-04-08] MEDS: ALPHAGAN P 0.1% OPHTH SOLN RIGHT EYE SCH ×2 (08:44→20:07)
[2018-04-08] MEDS: ASPIRIN PO SCH ×2 (08:45→11:12)
[2018-04-08] MEDS: LASIX PO SCH (08:45)
[2018-04-08] MEDS: KLOR-CON PO SCH (08:45)
[2018-04-08] MEDS: CARAFATE LIQUID PO SCH ×2 (08:45→20:07)
[2018-04-08] MEDS: TOPROL XL PO SCH ×2 (08:46→11:12)
--- NOTE | 2018-04-08 09:30 | PROGRESS NOTE ---
DATE: 04/08/2018 Mr. Jane had an echocardiogram as well as a myocardial perfusion nuclear scan performed yesterday. His left ventricle function appears normal. An echocardiogram reveals mild degree of tricuspid regurgitation and pulmonary pressure of 27 to 32 with some mild degree of mitral regurgitation. Overall condition is, otherwise, stable. We will continue with the current management on him. -5 cc: Meño Nye MD
[2018-04-08] MEDS: LIPITOR PO SCH (20:06)
[2018-04-08] MEDS: COSOPT OPHTH SOLN RIGHT EYE SCH (20:07)
[2018-04-08] MEDS: FLOMAX PO SCH (20:07)
[2018-04-08] MEDS: XALATAN 0.005% OPH SOLN BOTH EYES SCH (20:07)
[2018-04-09] MEDS: TOPROL XL PO SCH (09:24)
[2018-04-09] MEDS: LASIX PO SCH (09:24)
[2018-04-09] MEDS: ASPIRIN PO SCH (09:24)
[2018-04-09] MEDS: KLOR-CON PO SCH (09:25)
[2018-04-09] MEDS: RANEXA PO SCH ×2 (09:25→21:36)
[2018-04-09] MEDS: ALPHAGAN P 0.1% OPHTH SOLN RIGHT EYE SCH ×2 (09:25→21:37)
[2018-04-09] MEDS: CARAFATE LIQUID PO SCH ×2 (09:25→21:37)
[2018-04-09] MEDS: PROSCAR PO SCH (09:25)
--- NOTE | 2018-04-09 10:08 | PROGRESS NOTE ---
DATE: 04/09/2018 SUBJECTIVE: Mr. Jane is not feeling well today. He had a chill early this morning. He is feeling weak. I am going to get CBC and chest x-ray. He does not have any sore throat. We will give him 1 g Rocephin IV today. As far as his cardiac status is concerned, he is cleared to go home. -7 cc: Meño Nye MD
[2018-04-09] MEDS: ROCEPHIN 1 GM in NS 50 ML IV SCH (12:50)
[2018-04-09] MEDS: LIPITOR PO SCH (21:36)
[2018-04-09] MEDS: FLOMAX PO SCH (21:36)
[2018-04-09] MEDS: COSOPT OPHTH SOLN RIGHT EYE SCH (21:37)
[2018-04-09] MEDS: XALATAN 0.005% OPH SOLN BOTH EYES SCH (21:38)
[2018-04-10 07:02] LABS: BASO# 0.03 X1000 (0.0-0.2); BASO% 0.5 % (0.0-0.8); EOS# 0.18 X1000 (0.0-0.7); EOS% 2.9 % (0.0-10.0); HEMATOCRIT 37.6 % (42.0-52.0); HEMOGLOBIN 12.8 g/dL (14.0-18.0); LYMPH# 2.18 X1000 (1.2-3.4); LYMPH% 34.9 % (20.5-51.1); MCH 32.2 PG (27-31); MCV 94.5 FL (81-99); MONO# 0.56 X1000 (0.11-0.59); MPV 9.5 FL (7.4-10.4); NEUT# 3.29 X1000 (1.4-6.5); NEUT% 52.7 % (42.2-75.2); PLT 269 X1000 (130-400); RBC 3.98 XMIL (4.7-6.1); RDW 13.3 % (11.5-14.5); WBC 6.24 X1000 (4.8-10.8)
[2018-04-10 07:34] VITALS: BP 114/70
--- NOTE | 2018-04-10 08:27 | Diag Imaging Result Doc PS360 ---
EXAM: CHEST-2 VIEWS 04/10/2018 HISTORY: fever, cough TECHNIQUE: PA and lateral chest COMMENT: There is apical pleural thickening bilaterally. There is a granuloma in the superior segment of the left lower lobe which is apparently obscured by the pacemaker on the PA view. This is not changed since 04/06/2018. The inspiration is better than on the previous study. There is no evidence of acute cardiac or pulmonary disease. IMPRESSION: Stable chest. Electronically signed by Jose Naranjo 04/10/2018 8:24 AM
--- NOTE | 2018-04-10 09:30 | PROGRESS NOTE ---
DATE: 04/10/2018 SUBJECTIVE: Mr. Jane is doing better. His coughing and fever with chills are better. His throat is less congested. Lungs are clear. Heart sounds are normal. He denies having any chest pain. I am going to discharge him today. -5 cc: Meño Nye MD
[2018-04-10] MEDS: PROSCAR PO SCH (09:35)
[2018-04-10] MEDS: LASIX PO SCH (09:35)
[2018-04-10] MEDS: KLOR-CON PO SCH (09:35)
[2018-04-10] MEDS: CARAFATE LIQUID PO SCH (09:36)
[2018-04-10] MEDS: ALPHAGAN P 0.1% OPHTH SOLN RIGHT EYE SCH (09:36)
[2018-04-10] MEDS: TOPROL XL PO SCH (09:36)
[2018-04-10] MEDS: ASPIRIN PO SCH (09:36)
[2018-04-10] MEDS: RANEXA PO SCH (09:36)
[2018-04-10] MEDS: ROCEPHIN 1 GM in NS 50 ML IV SCH (09:37)
--- NOTE | 2018-04-11 04:15 | DISCHARGE SUMMARY ---
ADMISSION DATE: 04/07/2018 DISCHARGE DATE: 04/10/2018 HISTORY: Mr. Jane, who is a 73-year-old white gentleman, was hospitalized because of severe chest pain. He has history of coronary artery disease. He has a permanent pacemaker. LABORATORY DATA IN THE HOSPITAL: EKG revealed normal sinus rhythm and sinus arrhythmias. Otherwise it was normal. Echocardiogram was unremarkable. Ejection fraction was 55% and mild degree of tricuspid regurgitation, mild degree of mitral regurgitation present. He had a myocardial perfusion scan, nuclear scan performed which did revealed normal EKG as well as normal nuclear scan. Estimated ejection fraction was 62%. Chest x-ray was unremarkable. Other lab data revealed CBC revealed anemia, hemoglobin 12.8. Arterial blood gases revealed pH 7.42, pCO2 of 44, pO2 was 94. Electrolytes were normal. Creatinine was 1.3, BUN was 18. Troponins were negative. ProBNP was negative, and urinalysis was unremarkable. COURSE IN THE HOSPITAL: He was kept on telemetry. Enzymes and studies were negative. Cardiology consult was made. nuclear ]scan was negative. He has history of coronary disease, and this is probably angina pectoris. He had some spells with upper respiratory infection yesterday. Chest x- ray was normal. FINAL DIAGNOSES: 1. Chest pain. 2. Upper respiratory infection. 3. Mild acute bronchitis. DISCHARGE INSTRUCTIONS: He has antibiotics which he will continue. I will see him in the office in about next week. cc: Meño Nye MD MTDD
== END 2018-04-10 11:56 | disposition home or self-care (01) | DRG 303 ==
LOC: 4N 22:38 → ED 22:38 → SUATTDRO 04-07 06:09
PROVIDERS: ADMIT Internal Medicine; ATTEND Internal Medicine
CPT/HCPCS: 51701; 71010; 71020; 71045; 71046; 78452; 80048; 80053; 81001; 82550; 82805; 83880; 84484; 85025; 93005; 93017; 93306; 99285; A9270; A9500; J0696; J2785; P9612; S0138

== ENCOUNTER 2018-07-01 23:01 | Inpatient (IN) ==
[2018-07-02 00:18] LABS: BASO# 0.03 X1000 (0.0-0.2); BASO% 0.5 % (0.0-0.8); EOS# 0.11 X1000 (0.0-0.7); EOS% 1.9 % (0.0-10.0); HEMATOCRIT 35.7 % (42.0-52.0); HEMOGLOBIN 12.1 g/dL (14.0-18.0); LYMPH% 27.5 % (20.5-51.1); MCH 32.6 PG (27-31); MCHC 33.9 g/dL (33-37); MCV 96.2 FL (81-99); MONO# 0.58 X1000 (0.11-0.59); MPV 9.2 FL (7.4-10.4); NEUT% 60.1 % (42.2-75.2); PLT 222 X1000 (130-400); RBC 3.71 XMIL (4.7-6.1); RDW 13.5 % (11.5-14.5); WBC 5.82 X1000 (4.8-10.8)
[2018-07-02 00:48] LABS: ALB/GLOB RATIO 1.5; CALCIUM 8.3 mg/dL (8.8-10.2); CREATININE 1.4 mg/dL (0.7-1.2); POTASSIUM 4.6 mmol/L (3.5-5.1); TOTAL BILIRUBIN 0.39 mg/dL (0.20-1.00); TOTAL PROTEIN 6.6 g/dL (6.3-8.3)
[2018-07-02 01:23] LABS: URINE SOURCE CLEAN CATCH
[2018-07-02 01:31] LABS: BILIRUBIN URINE NEGATIVE (NEGATIVE); BLOOD URINE NEGATIVE (NEGATIVE); COLOR YELLOW; GLUCOSE URINE NEGATIVE (NEGATIVE); KETONE URINE NEGATIVE (NEGATIVE); LEUKOCYTES URINE NEGATIVE (NEGATIVE); NITRITE URINE NEGATIVE (NEGATIVE); PROTEIN URINE NEGATIVE (NEGATIVE); SP GRAVITY URINE 1.014; TURBIDITY URINE CLEAR (CLEAR); UROBILINOGEN URINE NORMAL (NORMAL)
[2018-07-02 01:33] LABS: UR EPITHELIAL CELLS <10 /HPF (<10); URINE BACTERIA NEGATIVE /HPF; URINE RBC <10 /HPF (<10); URINE WBC <10 /HPF (<10)
[2018-07-02] MEDS ORDERED: ANTIVERT PO ONE (03:05)
--- NOTE | 2018-07-02 07:11 | EKG Report ---
Test Performed on : 07/02/2018 02:21:14 AM Test Reason : dizziness Blood Pressure : / mmHG Vent. Rate : 062 BPM Atrial Rate : 062 BPM P-R Int : 222 ms QRS Dur : 092 ms QT Int : 456 ms P-R-T Axes : 002 020 038 degrees QTc Int : 462 ms Sinus rhythm. with 1st degree AV block. with premature atrial complexes. Otherwise normal ECG When compared with ECG of 22-JUN-2018 17:45, (Unconfirmed) Previous ECG has undetermined rhythm, needs review Unconfirmed Result
--- NOTE | 2018-07-02 07:22 | Diag Imaging Result Doc PS360 ---
EXAM: CT HEAD W/O CONTRAST INDICATION: dizziness TECHNIQUE: This exam was performed using automated exposure control, adjustment of mA or kV according to patient size, and/or use of iterative reconstruction technique. COMPARISON: 06/22/2018 FINDINGS: There is stable right frontal lobe encephalomalacia with ex vacuo dilation of the right lateral ventricle. There is suggestion of mild white matter microangiopathy in the left frontal lobe is stable. There is no definite acute infarct given the limited sensitivity of CT versus MRI. There is no discrete intracranial mass, mass effect, or intracranial hemorrhage. There is trace right mastoid air cell fluid. Surrounding soft tissues and bony structures are essentially unremarkable, otherwise. IMPRESSION: Stable chronic changes as described. No evidence of acute intracranial pathology. Electronically signed by Romel Cancino 07/02/2018 7:20 AM
--- NOTE | 2018-07-02 07:37 | PROVIDER DOCUMENTATION ---
This chart was entered by Logan Morrison Scribe, acting as scribe for Francis Almaraz MD. HPI-General Adult - General Chief Complaint: Dizziness Stated Complaint: dizzy Time Seen by Provider: 07/02/18 00:34 Source: patient Allergies/Adverse Reactions: Patient Allergies Allergy/AdvReac Type Severity Reaction Status Date / Time meperidine HCl * Allergy Unknown ANAPHYLAXIS Verified 10/11/17 22:13 [From Demerol] NSAIDS (Non-Steroidal AdvReac Unknown Verified 10/11/17 22:13 Anti-Inflamma Home Medications: Home Medication List Medication Instructions Recorded Confirmed Last Taken Type ATORVAstatin [Lipitor] 80 mg PO HS 03/25/12 06/22/18 01/20/17 History Tamsulosin HCl 0.4 mg PO QHS 03/25/12 06/22/18 01/21/17 16:00 History Potassium Chloride 10 meq PO DAILY #30 tablet.er 04/16/12 06/22/18 01/21/17 16:00 Rx Furosemide [Lasix] 20 mg PO DAILY 05/29/14 06/22/18 01/21/17 16:00 History Sucralfate [Carafate Liquid] 1 gm PO BID 07/27/14 06/22/18 01/21/17 16:00 History Latanoprost 0.005% Oph Soln 1 drop BOTH EYES HS 10/20/14 06/22/18 09/11/16 History [Xalatan 0.005% Oph Soln] Ranolazine E.r. [Ranexa] 1,000 mg PO BID 09/13/16 06/22/18 01/21/17 16:00 History Brimonidine 0.1% Ophth Soln 1 drop OP BID 10/05/17 06/22/18 Unknown History [Alphagan P 0.1% Ophth Soln] Dorzolamide HCl/Timolol Maleat 1 drop OP QHS 10/05/17 06/22/18 Unknown History [Dorzolamide-Timolol Eye Drops] Finasteride 5 mg PO DAILY 10/05/17 06/22/18 Unknown History Aspirin 81 mg PO DAILY chewtab 04/10/18 06/22/18 Unknown Rx Metoprolol Succinate E.r. [Toprol 50 mg PO DAILY tablet 04/10/18 06/22/18 Unknown Rx Xl] Magnesium Oxide [Magnesium] 400 mg PO DAILY 06/22/18 06/22/18 Unknown History [place]-3 Fatty Acids/Fish Oil [Fish 1 cap PO DAILY 06/22/18 06/22/18 Unknown History Oil 1,000 mg Capsule] Omeprazole 1 cap PO DAILY 06/22/18 06/22/18 Unknown History Polyethylene Glycol 3350 [Miralax] 238 gm PO DAILY 06/22/18 06/22/18 Unknown History Zinc 50 mg PO DAILY 06/22/18 06/22/18 Unknown History - History of Present Illness -Gen Adult Nature of Presenting Problems: Pt is a 73 y/o M reports he began to feel dizzy this evening around 10 pm causing him to lose his balance and fall. Pt report hot tingling in his right hip/buttock into his groin. Pt says his feeling improved in his right hand after falling. Pt reports a chronic loss of sensation in his right hand but his movement and a warm feeling in his hand now. Location of Pain/Injury: reports: pelvis (right hip) Pain Radiation: reports: groin Quality of Pain: reports: other (tingling feeling) Onset/Duration: reports: this evening Timing: reports: improving Context/Activities at Onset: reports: other (fall) Modifying Factors: improves with: nothing Similar Symptoms Previously?: No Recently seen or treated by another doctor?: No Review of Systems - Adult - REVIEW OF SYSTEMS - ADULT Constitutional: denies: chills, fever Eyes: reports: no symptoms reported Ears, Nose, Mouth & Throat: reports: no symptoms reported Cardiovascular: denies: chest pain, edema Respiratory: denies: chronic cough, shortness of breath Gastrointestinal: denies: abdominal pain, nausea, vomiting Genitourinary: reports: no symptoms reported Musculoskeletal: reports: bone pain, joint pain. denies: back pain, neck pain Integumentary: reports: no symptoms reported Neurological: reports: dizziness/vertigo. denies: headache/migraines, seizure, slurred speech, syncope Psychiatric: reports: no symptoms reported Endocrine: reports: no symptoms reported Hematologic/Lymphatic: reports: no symptoms reported Allergic/Immunologic: reports: no symptoms reported All Other Systems: Reviewed and Negative Past History - Adult - PAST MEDICAL HISTORY-ADULT Review of Records: reports: Old Records Reviewed, Nursing Assessment Review, Medications Reviewed Major Childhood Illnesses: reports: denies history Cardiovascular: reports: aortic disease (AAA), CAD, HTN, hyperlipidemia Respiratory: reports: denies history Gastrointestinal: reports: other (abdominal aortic aneurysm) Obstetrical/Gynecological: reports: denies history Genitourinary: reports: kidney disease, kidney stones Musculoskeletal: reports: chronic pain (back pain), intervertebral disc disease Neurological: reports: CVA, stroke deficits, other Psychiatric: reports: denies history Endocrine/Immune: reports: denies history Other Conditions: reports: denies history - PRIOR SURGERIES/PROCEDURES Surgical/Procedure History: reports: appendectomy, CABG, cholecystectomy, orthopedic (extremity), other (AAA repair) - PRIOR HOSPITALIZATIONS Prior Hospitalizations: reports: for other non-related - IMMUNIZATION STATUS Childhood Immunizations: See Nurse Assessment Flu Vaccine: See Nurse Assessment - FAMILY HISTORY Family History: CAD over 55 yo, other (CHF) - SOCIAL HISTORY Smoking: non-smoker, quit less than 1 year Living Situation: family Physical Exam-General - PHYSICAL EXAM-ADULT Initial Vital Signs Reviewed: Yes - CONSTITUTIONAL General Appearance: appears well, alert, no apparent distress - EYES Eyes: PERRL/EOMI, pink conjunctivae - HEAD, EARS, NOSE, MOUTH & THROAT HENMT: moist mucous membranes, pharynx normal, TM obscurred by cerumen (bilaterally) - NECK Neck: non-tender, full range of motion, supple, normal inspection - RESPIRATORY Respiratory: chest non-tender, lungs clear, normal breath sounds, no pleuratic chest pain, no respiratory distress, no accessory muscle use - CARDIOVASCULAR Cardiovascular: normal peripheral pulses, regular rate, rhythm - GASTROINTESTINAL (ABDOMEN) Abdominal Exam: normal bowel sounds, non tender, soft - MUSCULOSKELETAL Back Exam: normal inspection, no CVA tenderness, no vertebral tenderness Extremity: normal range of motion, non-tender, normal gait, normal inspection, normal capillary refill, pelvis stable - SKIN Integumentary: normal color, normal turgor, warm/dry - NEUROLOGIC Neurologic: grossly normal, no motor/sensory deficits. negative: aphasia, fac ial droop, focal weakness, sensory deficit - PSYCHIATRIC Psych/Mental Status: normal mood/affect, normal thought content, normal thought process, oriented x 3 Progress - PLAN OF CARE/RESULTS Progress/Plan/Lab Results: Vital Signs - 8 hr 07/01/18 23:50 Temperature 98.4 F Pulse Rate 82 Respiratory Rate 20 Blood Pressure 140/79 O2 Sat by Pulse Oximetry 96 Laboratory Results - last 24 hr 07/02/18 07/02/18 07/02/18 00:00 00:00 00:51 WBC 5.82 RBC 3.71 L Hgb 12.1 L Hct 35.7 L MCV 96.2 MCH 32.6 H MCHC 33.9 RDW Std Deviation 13.5 Plt Count 222 MPV 9.2 Neut % (Auto) 60.1 Lymph % (Auto) 27.5 [place] % (Auto) 10.0 H Eos % (Auto) 1.9 Baso % (Auto) 0.5 Neut # (Auto) 3.50 Lymph # (Auto) 1.60 [place] # (Auto) 0.58 Eos # (Auto) 0.11 Baso # (Auto) 0.03 Sodium 138 Potassium 4.6 Chloride 104 Carbon Dioxide 27 Anion Gap 7 BUN 19 Creatinine 1.4 H Estimated GFR/1.73 m2 50 BUN/Creatinine Ratio 14 Glucose 93 Calculated Osmolality 278 Calcium 8.3 L Total Bilirubin 0.39 AST 17 ALT 22 Alkaline Phosphatase 93 Total Protein 6.6 Albumin 4.0 Globulin 2.6 Albumin/Globulin Ratio 1.5 Urine Source CLEAN CATCH Urine Color YELLOW Urine Turbidity CLEAR Urine pH 7.0 Ur Specific [place] 1.014 Urine Protein NEGATIVE Ur Glucose (Stick) NEGATIVE Ur Ketones (Stick) NEGATIVE Urine Blood NEGATIVE Urine Nitrite NEGATIVE Urine Bilirubin NEGATIVE Urobilinogen Dipstick NORMAL Urine Leukocytes NEGATIVE Urine WBC (Auto) <10 Urine RBC (Auto) <10 U Epithel Cells (Auto) <10 Urine Bacteria (Auto) NEGATIVE Orders Category Date Time Status CBC WITH ELECTRONIC DIFF [HEME] Stat Lab 07/02/18 00:00 Completed COMPREHENSIVE METABOLIC PANEL [CHEM] Stat Lab 07/02/18 00:00 Completed URINALYSIS [URINALYSIS] Stat Lab 07/02/18 00:51 Completed EKG [EKG] Stat Ther 07/02/18 00:38 Ordered At recheck pt now states that he is having generalized weakness to both legs and difficulty standing that isnt normal for him. Result Diagrams: 07/02/18 00:00 07/02/18 00:00 - CONSULTS/PCP/HOSPITALIST Notification #1 *Consult/PCP/Hospitalist*: Dr Nye Time Discussed: 07:37 Consult Disposition: Will see in ED, Admit Departure - Departure Date of Disposition Decision: 07/02/18 Time of Disposition Decision: 06:59 DIAGNOSIS: Weakness, Dizziness of unknown cause Disposition: ADMITTED INPATIENT 09 Certified Medical Emergency: Emergent Condition: Fair Referrals and Follow-Ups: Meño Nye MD [Primary Care Provider] - - Critical Care Note This patient required my direct & personal management of CC.: No Attestation - Physician/ THEA Attestation Patient care was provided by Advanced Practice Provider:: No The physician spent face to face time with patient:: Yes Advanced Practice Provider documentation review:: Supervising physician onsite and consulted in the evaluation and care of this patient. The physician did have a face to face encounter with the patient. This chart was documented by the indicated scribe, (Logan Morrison Scribe) and accurately reflects the services I performed and decisions made by me, Francis Almaraz MD, as attested by the provider's signature.
[2018-07-02] MEDS ORDERED: ASPIRIN PO SCH (09:00)
--- NOTE | 2018-07-02 10:26 | HISTORY AND PHYSICAL ---
HISTORY: Mr. 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 He says he fell down after he got dizzy and then and he was very clumsy in his feet and he cannot walk since then. He is very weak in both legs. PAST MEDICAL HISTORY: He has had history of 3 strokes in the past and he had some weakness in his left leg. He had a prosthesis on the left leg. He has severe degenerative disk disease in the lumbar and cervical spine. He has generalize vascular disease. PAST SURGICAL HISTORY: He had 3 vessel coronary artery bypass surgery, has permanent pacemaker and triple AAA surgery for aortic aneurysm. He had cholecystectomy, appendicectomy and 2 hernia surgeries. As mentioned before he had surgery on the lumbar and cervical spine. SOCIAL HISTORY: He has been he has been a smoker in the past. However has not smoked in last many years. He does not drink. ALLERGIES: Meperidine and NSAID. REVIEW OF SYSTEMS: Other than not able to walk, it is noncontributory. He is still DC. PHYSICAL EXAMINATION: The patient is alert. VITAL SIGNS: Temperature normal, pulse 59 per minute, respiratory rate 18 per minute, blood pressure 145/81. HEENT: Head normocephalic pupils PERRLA. Fundus examination normal except for hypertensive retinopathy. NECK: Supple. JVP normal. ENT examination unremarkable. There is no evidence of lymphadenopathy, thyroid enlargement, pedal edema, calf tenderness, anemia, cyanosis or clubbing. Pedal pulses well felt. BREAST EXAM: Normal. CHEST: Normal expansion. Chest reveals midline scar from bypass surgery. He has a pacemaker. PMI in the normal position. LUNGS: Clear on auscultation. HEART: Sounds normal. No murmur, gallop or rub noted. ABDOMEN: Nondistended. Hernial orifices normal. No guarding, rigidity, free fluid, masses, or organomegaly. Bowel sounds normal. RECTAL: Deferred. BRAND ADVOCATE: Higher functions normal. Cranial nerves normal. Motor and sensory system examination reveals weakness in the legs with mild hypotonia. There is some incoordination in both legs. Deep tendon reflexes are sluggish. Plantars downgoing. Skull and spine examination reveals painful movements of the lumbosacral and cervical spine. SLR positive. No cerebellar signs or signs of meningeal irritation. Focal motor exam unremarkable. SKIN EXAM: Otherwise unremarkable. IMPRESSION: History of severe dizziness. The patient had history of a fall and since then he has not been able to walk. He is very clumsy when he walks. PLAN: Get carotid artery flow studies at the present time. Get the echocardiogram and get a Neurology consultation. cc: Meño Nye MD
--- NOTE | 2018-07-02 10:53 | PROGRESS NOTE ---
DATE: 07/02/2018 Mr. Jane was admitted early this morning. He fell. He got dizzy and fell at home. Thereafter, he could not walk. His CT scan of the head was done which revealed no evidence of intracranial bleeding. There is stable encephalomalacia in the frontal lobe. No discrete intracranial mass. He still has weakness in the legs, with incoordination. We will get a neurology consult for it. He has a history of hypertension, coronary artery disease, has a permanent pacemaker. We will start physical therapy on him too. He has history of severe degenerative disk disease in the lumbar spine. cc: Meño Nye MD
--- NOTE | 2018-07-02 14:55 | CONSULTATION ---
DATE OF CONSULTATION: 07/02/2018 Mr. Jane reports recent dizzy episode with possible collapse. He reports having frequent urge to defecate, frequent trips to the bathroom, limited results but a lot of straining. He took some medicine to help him pass the stool. He felt suddenly lightheaded on standing with blurred vision and a sense that he was off-balance. At one point, there was a little bit of room spinning sensation. He got up again, attempted to take a step and fell. He could not get up without assistance. He did not lose consciousness. There was no focal feature to the blurred vision. He has chronic weakness in the left limbs and that was not any worse than baseline. He did not have headache. Speech was not slurred. There was no memory gap. He feels a lot better today. He has been up walking unassisted today. He has a very complicated past neurologic history. He reports subacute onset at age 17 of weakness in the left limbs, left facial drooping, slurred speech, possibly trouble chewing and swallowing. He did not notice vision disturbance then. The deficit progressed over several days. 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 The deficit was stable and improved a little bit. He has used a brace on the left leg since then. He does not report any significant change in the left sided weakness since that recovery as a teenager. Approximately 30 years ago, he was attempting to run and tripped, fell, injured his left knee. Gait was transiently worse then. He reports that when he fell, there was a sense that his "brain was in a fog" and that resolved. In the , he was struck on the head and had transient altered awareness but no new neurologic deficit. He reports that was diagnosed as concussion. In late 1999, he was seated on a stump, visiting with a friend and suddenly slumped, fell from the stump he was sitting on. He believes he nearly lost consciousness but that he did not completely lose consciousness. There was no reported new rigidity, limb jerking, or other seizure-like feature. After he recovered, there was no new focal neurologic deficit. He has never had diagnosed seizure. His recent home medicines include 17 entries on the list recorded here. He is certain he takes his medicines correctly. Medicines include tramadol. I do not see anything else that would likely have any [employer] effect or increase seizure tendency. He denies ethanol use, illicit drug use, drug intoxication. He has been afebrile. Heart rate has ranged 50s to 80s. Systolic blood pressures have ranged 130s to 160s. Lab showed mild anemia with hemoglobin 12.1, hematocrit 35.7%. He has had workup including carotid ultrasound today with verbal report that there was no hemodynamically significant stenosis bilaterally. Noncontrast CT of the head shows old right frontal ex vacuo changes with right frontal pole of the lateral ventricle enlarged. Nothing appears recent. Computer record shows 2015 MRI report with similar findings. On exam, Mr. Jane is awake, alert, attentive, and appropriate. Speech is slow and plodding but not dysarthric, easily understood without language deficit. He is oriented. Memory is good. Head and neck are unremarkable. Visual simpson are full. Extraocular movements are full. The left nasolabial fold is less prominent than the right but facial motility is good bilaterally. He reports slightly diminished pinprick appreciation over the left face and limbs compared to the right with some inconsistency on repeated testing. Gag is intact. Tongue is midline. Hearing is good. He has good power in the right limbs. He has increased tone in the left limbs and moderate left hemiparesis. He cannot dorsiflex the left foot. Proprioception is very poor on the left, normal on the right. I did not test his gait. IMPRESSION: 1. Recent episode sounds like dizziness with possible labyrinthopathy or postural lightheadedness but doubt primary central nervous system event. 2. Complicated past neurologic history with nondominant right hemisphere event at age 17 resulting in left hemiparesis and that has been persistent. 3. He has history of concussion and syncope without neurologic sequela and I do not find history of any other brain event. I do not think we need to do anything urgently from a neurologic standpoint. If he has further trouble, we might consider brain MRI and if he has episodes of altered awareness, we can consider EEG. I encouraged him to be careful and to make sure he is taking his medicines correctly. Thanks for asking neurology to see Mr. Jane. I will be glad to see him again, inpatient or outpatient, if needed. cc: MD Meño Israel III, MD [facility]
[2018-07-02] MEDS: COSOPT OPHTH SOLN BOTH EYES SCH (21:20)
[2018-07-02] MEDS: LIPITOR PO SCH (21:20)
[2018-07-02] MEDS: XALATAN 0.005% OPH SOLN BOTH EYES SCH (21:21)
[2018-07-02] MEDS: ALPHAGAN P 0.1% OPHTH SOLN BOTH EYES SCH (21:22)
--- NOTE | 2018-07-03 08:45 | PROGRESS NOTE ---
DATE: 07/03/2018 Ms. Jane is awake, alert, attentive, and appropriate this morning. He reports no new problems. Specifically, he reports that he seems to be back to baseline with gait. Still, he does not feel completely recovered. His complicated neurologic history was reviewed briefly with him this morning and he adds additional complaint of back pain. He has not had definite radicular features. I do not think that changes the neurologic impression and recommendations. No new suggestions. Thanks for asking neurology to see Mr. Jane. cc: MD Meño Israel III, MD [facility]
--- NOTE | 2018-07-03 09:27 | PROGRESS NOTE ---
DATE: 07/03/2018 Mr. Jane is in about the same general condition. He still has weakness in the legs. He has some incoordination and some dizziness which could be secondary from labyrinthitis. He has severe disease in his lumbar spine. Some of the leg weakness and pain can be from radiculopathy. Neurology consultation was noted. CT scan was really unremarkable as far as new stroke is concerned. He is followed by Dr. Judge who does not think there is anything acute going on from a neurologic standpoint. He is getting physical therapy. If he improves some and gets some confidence in walking, we will discharge him tomorrow. cc: Meño Nye MD
[2018-07-03] MEDS: MAG-OX PO SCH (10:01)
[2018-07-03] MEDS: PROSCAR PO SCH (10:01)
[2018-07-03] MEDS: TOPROL XL PO SCH (10:01)
[2018-07-03] MEDS: ASPIRIN PO SCH (10:01)
[2018-07-03] MEDS: ALPHAGAN P 0.1% OPHTH SOLN BOTH EYES SCH ×2 (10:01→22:25)
[2018-07-03] MEDS: LASIX PO SCH (10:01)
--- NOTE | 2018-07-03 16:13 | Carotid Study ---
DATE: 07/02/2018 PROCEDURE: Carotid imaging study. REFERRING PHYSICIAN: Meño Nye MD INTERPRETING PHYSICIAN: Pedro Luis Christie MD TECH: Marbin Witt [facility] INDICATIONS: The patient had a TIA and weakness in the legs. OBSERVED DATA RIGHT LEFT Brachial Blood Pressure Carotid Pulse Bruits: Carotid/Sub DIAGRAM OF ULTRASOUND IMAGING R L RIGHT INT EXT INT EXT LEFT Henrique (cm/s) Henrique (cm/s) Subclavian 84/0 Subclavian 54/0 CCA Proximal 107/29 CCA Proximal 88/27 CCA Distal 88/29 CCA Distal 92/27 Bulb 79/21 Bulb 103/38 ICA Proximal 76/17 ICA Proximal 72/18 ICA Mid 74/26 ICA Mid 68/26 ICA Distal 66/28 ICA Distal 76/27 ECA 74/14 ECA 70/13 Vertebral 32/10 A Vertebral 36/9 A ICA/CCA Ratio 0.7 ICA/CCA Ratio 0.8 % Stenosis 0%-39% % Stenosis 0%-39% FINDINGS: Shallow plaque exists in both bulbs. PHYSICIAN INTERPRETATION: Shallow plaque in both bulbs. Neither side produces stenoses of hemodynamic consequence. There is antegrade vertebral flow bilaterally. cc: MD Meño Geiger MD [facility]
[2018-07-03] MEDS: COSOPT OPHTH SOLN BOTH EYES SCH (22:24)
[2018-07-03] MEDS: XALATAN 0.005% OPH SOLN BOTH EYES SCH (22:25)
[2018-07-03] MEDS: LIPITOR PO SCH (22:26)
[2018-07-04 07:22] VITALS: BP 146/85
[2018-07-04] MEDS: PROSCAR PO SCH (08:40)
[2018-07-04] MEDS: LASIX PO SCH (08:40)
[2018-07-04] MEDS: ALPHAGAN P 0.1% OPHTH SOLN BOTH EYES SCH (08:40)
[2018-07-04] MEDS: MAG-OX PO SCH (08:40)
[2018-07-04] MEDS: ASPIRIN PO SCH (08:40)
[2018-07-04] MEDS: TOPROL XL PO SCH (08:40)
--- NOTE | 2018-07-04 11:50 | PROGRESS NOTE ---
DATE: 07/04/2018 Mr. Jane is doing better. His lungs are clear. Heart sounds are normal. Abdomen soft, nontender. He can walk some. Physical Therapy has been a big help for him. He is still slightly dizzy. I told him to be careful. He should use a walker or a cane when he can. We may arrange for some outpatient physical therapy later on for the unsteadiness -1 cc: Meño Nye MD
--- NOTE | 2018-07-05 03:29 | DISCHARGE SUMMARY ---
ADMISSION DATE: 07/02/2018 DISCHARGE DATE: 07/04/2018 HOSPITAL COURSE: Mr. Jane was admitted with severe dizziness with weakness in the legs. He actually fell. He had history of multiple strokes in the past. A CT scan of the brain revealed stable chronic changes described. No evidence of acute intracranial pathology noted. He also had a neurology consultation with Dr. Judge, which Dr. Judge saw him on 07/02/2009 and mentioned about the recent episode of dizziness, possibility of labyrinthopathy, possible TIA would be considered. He has complicated neurologic history in the past. The carotid flow studies revealed shallow plaque in both bulbs. He has generalized vascular disease. DISCHARGE DIAGNOSES: 1. Transient ischemic attack. 2. Severe dizziness. 3. History of fall, incoordination in the legs. DISCHARGE DISPOSITION: He will be continuing his aspirin 81 mg. If he continues to be unsteady, we may consider outpatient physical therapy on him. We will discharge him today. cc: Meño Nye MD
== END 2018-07-04 12:11 | disposition home or self-care (01) | DRG 69 ==
LOC: SUPCPDRO → ED 23:01 → 4N 07-02 08:04
PROVIDERS: ADMIT Internal Medicine; ATTEND Internal Medicine
CPT/HCPCS: 70450; 80053; 81001; 85025; 93005; 93306; 93880; 97162; 97530; 99285; A9270; S0138

== ENCOUNTER 2018-07-15 04:02 | Observation (INO) ==
--- NOTE | 2018-07-15 06:24 | PROVIDER DOCUMENTATION ---
HPI-Neurological Disorder - General Chief Complaint: Numbness Time Seen by Provider: 07/15/18 04:20 Source: EMS Allergies/Adverse Reactions: Patient Allergies Allergy/AdvReac Type Severity Reaction Status Date / Time meperidine HCl * Allergy Unknown ANAPHYLAXIS Verified 10/11/17 22:13 [From Demerol] NSAIDS (Non-Steroidal AdvReac Unknown Verified 10/11/17 22:13 Anti-Inflamma Home Medications: Home Medication List Medication Instructions Recorded Confirmed Last Taken Type ATORVAstatin [Lipitor] 80 mg PO HS 03/25/12 07/15/18 07/01/18 17:00 History Tamsulosin HCl 0.4 mg PO QHS 03/25/12 07/15/18 07/01/18 17:00 History Potassium Chloride 10 meq PO DAILY #30 tablet.er 04/16/12 07/15/18 07/01/18 09:00 Rx Furosemide [Lasix] 20 mg PO DAILY 05/29/14 07/15/18 07/01/18 09:00 History Latanoprost 0.005% Oph Soln 1 drop BOTH EYES HS 10/20/14 07/15/18 07/01/18 17:00 History [Xalatan 0.005% Oph Soln] Ranolazine E.r. [Ranexa] 1,000 mg PO BID 09/13/16 07/15/18 07/01/18 17:00 History Brimonidine 0.1% Ophth Soln 1 drop OP BID 10/05/17 07/15/18 07/01/18 17:00 History [Alphagan P 0.1% Ophth Soln] Dorzolamide HCl/Timolol Maleat 1 drop OP DAILY 10/05/17 07/15/18 07/01/18 09:00 History [Dorzolamide-Timolol Eye Drops] Finasteride 5 mg PO DAILY 10/05/17 07/15/18 07/01/18 09:00 History Aspirin 81 mg PO DAILY chewtab 04/10/18 07/15/18 07/01/18 17:00 Rx Metoprolol Succinate E.r. [Toprol 50 mg PO DAILY tablet 04/10/18 07/15/18 07/01/18 17:00 Rx Xl] Magnesium Oxide [Magnesium] 400 mg PO DAILY 06/22/18 07/15/1819 09:00 History Felton-3 Fatty Acids/Fish Oil [Fish 1 cap PO DAILY 06/22/18 07/15/18 07/01/18 09:00 History Oil 1,000 mg Capsule] Omeprazole 1 cap PO DAILY 06/22/18 07/15/18 07/01/18 09:00 History Polyethylene Glycol 3350 [Miralax] 17 gm PO BID 06/22/18 07/15/18 07/01/18 17:00 History Zinc 50 mg PO DAILY 06/22/18 07/15/18 07/01/18 17:00 History Methocarbamol [Robaxin-750] 750 mg PO PRN PRN 07/02/18 07/15/18 07/01/18 17:00 History Sucralfate 1 gm PO BID 07/02/18 07/15/18 07/01/18 17:00 History Tramadol [Ultram] 50 mg PO BID 07/02/18 07/15/18 07/01/18 17:00 History Meclizine HCl [Antivert] 25 mg PO HS PRN #15 tab 07/04/18 07/15/18 Unknown Rx Linaclotide [Linzess] 145 mcg PO DAILY 07/15/18 07/15/18 Unknown History - History of Present Illness-Neuro Nature of Presenting Problem: patient is a 73 y/o with history of CVAx3 s/p L side hemiparesis presented with tingling around mouth associated with muscle spasm of the left upper and lower e xtremities, patient denied change in mental status, no fever or cough was reported. Severity: reports: moderate Onset/Duration: reports: gradual, this morning, other Timing: reports: improving, intermittent Context: reports: other (sister called EMS and patient reported to EMS that he felt like hang-over) Any recent trauma/injury?: reports: none Character of Deficits: reports: altered sensation. denies: new weakness, vision problem/glaucoma, impaired speech, impaired swallowing, decreased ability to stand, decreased ability to walk New weakness or altered sensation location:: reports: none Cognitive Baseline: alert, oriented x3 Gait Baseline: walks only with assistance (l side hemiparesis,) Associated Symptoms: reports: muscle spasms, paresthesia, weakness. denies: short of breath, headache, dizziness, confusion, fatigue, fever/chills, loss of consciousness, vision changes - Seizure First time to have a seizure?: No Witnessed seizure?: No Review of Systems - Adult - REVIEW OF SYSTEMS - ADULT Constitutional: denies: fever, fatique Eyes: reports: no symptoms reported Ears, Nose, Mouth & Throat: reports: no symptoms reported Cardiovascular: reports: no symptoms reported Respiratory: reports: no symptoms reported Gastrointestinal: reports: no symptoms reported Genitourinary: reports: no symptoms reported Musculoskeletal: reports: other (muscle spasm, tingling around mouth) Neurological: reports: see HPI, numbness, paresthesia. denies: headache/m igraines Psychiatric: reports: no symptoms reported Endocrine: reports: no symptoms reported Hematologic/Lymphatic: reports: no symptoms reported Allergic/Immunologic: reports: no symptoms reported Past History - Adult - PAST MEDICAL HISTORY-ADULT Review of Records: reports: Nursing Assessment Review Major Childhood Illnesses: reports: denies history Cardiovascular: reports: aortic disease (AAA), CAD, HTN, hyperlipidemia Respiratory: reports: denies history Gastrointestinal: reports: other (abdominal aortic aneurysm) Obstetrical/Gynecological: reports: denies history Genitourinary: reports: kidney disease, kidney stones Musculoskeletal: reports: chronic pain (back pain), intervertebral disc disease Neurological: reports: CVA, stroke deficits, other Psychiatric: reports: denies history Endocrine/Immune: reports: denies history Other Conditions: reports: denies history - PRIOR SURGERIES/PROCEDURES Surgical/Procedure History: reports: appendectomy, CABG, cholecystectomy, orthopedic (extremity), other (AAA repair) - PRIOR HOSPITALIZATIONS Prior Hospitalizations: reports: for other non-related - IMMUNIZATION STATUS Childhood Immunizations: See Nurse Assessment Flu Vaccine: See Nurse Assessment - FAMILY HISTORY Family History: CAD over 55 yo, other (CHF) Physical Exam- Neurological - Physical Exam-Neuro Initial Vital Signs Reviewed: Yes General Appearance: alert Eye Exam: bilateral eye: PERRL, EOMI HENMT: normocephalic/atraumatic Head Injury: no evidence of injury Neck: non-tender Respiratory: chest non-tender, lungs clear Cardiovascular: regular rate, rhythm, no edema Abdominal Exam: non tender, soft Extremity: other (left wrist contracutre and flexion, left upper and lower extremity atrophy and spasm, stiffness) Motor/Sensory: other (chornic left side weakness) Integumentary: normal color, warm/dry Psych/Mental Status: normal mood/affect - Glascow Coma Scale Best Eye Response: (4) open spontaneously Best Verbal Response: (5) oriented Best Motor Response: (6) obeys commands Progress - PLAN OF CARE/RESULTS Progress/Plan/Lab Results: Laboratory Results - last 24 hr 07/15/18 07/15/18 07/15/18 04:14 04:14 04:14 WBC 5.31 RBC 3.78 L Hgb 12.4 L Hct 35.9 L MCV 95.0 MCH 32.8 H MCHC 34.5 RDW Std Deviation 13.2 Plt Count 243 MPV 9.5 Immature Gran % (Auto) 0.6 H Neut % (Auto) 52.2 Lymph % (Auto) 33.5 Upton % (Auto) 10.7 H Eos % (Auto) 2.1 Baso % (Auto) 0.9 H Immature Gran # (Auto) 0.03 Neut # (Auto) 2.77 Lymph # (Auto) 1.78 Upton # (Auto) 0.57 Eos # (Auto) 0.11 Baso # (Auto) 0.05 PT 13.5 INR 0.96 PTT (Actin FS) 29.5 Sodium 139 Potassium 4.6 Chloride 104 Carbon Dioxide 26 Anion Gap 9 BUN 22 Creatinine 1.8 H BUN/Creatinine Ratio 12 Glucose 92 Calculated Osmolality 281 Calcium 8.8 Total Bilirubin 0.60 AST 19 ALT 24 Alkaline Phosphatase 84 Creatine Kinase 67 Troponin T Total Protein 6.7 Albumin 4.3 Globulin 2.4 Albumin/Globulin Ratio 1.8 Plasma/Serum Ethyl Alc 07/15/18 07/15/18 04:14 04:14 WBC RBC Hgb Hct MCV MCH MCHC RDW Std Deviation Plt Count MPV Immature Gran % (Auto) Neut % (Auto) Lymph % (Auto) Upton % (Auto) Eos % (Auto) Baso % (Auto) Immature Gran # (Auto) Neut # (Auto) Lymph # (Auto) Upton # (Auto) Eos # (Auto) Baso # (Auto) PT INR PTT (Actin FS) Sodium Potassium Chloride Carbon Dioxide Anion Gap BUN Creatinine BUN/Creatinine Ratio Glucose Calculated Osmolality Calcium Total Bilirubin AST ALT Alkaline Phosphatase Creatine Kinase Troponin T 0.010 Total Protein Albumin Globulin Albumin/Globulin Ratio Plasma/Serum Ethyl Alc 1 H Orders Category Date Time Status Admit - [facility] Routine AdmDCTranf 07/15/18 07:58 Active CHEST-PORTABLE [RAD] Routine Exams 07/15/18 05:[address] HEAD W/O CONTRAST [CT] Stat Exams 07/15/18 04:43 Completed ALCOHOL BLOOD Stat Lab 07/15/18 04:14 Completed CBC WITH DIFF [HEME] Stat Lab 07/15/18 04:14 Completed CK PROFILE [SP CHEM] Stat Lab 07/15/18 04:14 Completed COMPREHENSIVE METABOLIC PANEL [CHEM] Stat Lab 07/15/18 04:14 Completed PROTIME WITH INR [COAG] Stat Lab 07/15/18 04:14 Completed PTT [COAG] Stat Lab 07/15/18 04:14 Completed TROPONIN T Stat Lab 07/15/18 04:14 Completed Transfer/Admit Order [TRANSFER] Routine Transfer 07/15/18 07:59 Completed Reeval: patient's sister states that he continues to have some garbled speech. Discussed with Dr. Nye with plan for admisssion. Result Diagrams: 07/15/18 04:14 07/15/18 04:14 - CT/MRI 1 CT Study: Head Impression: See EMR Report (no acute intracranial abnormality) Impression: See EMR Report (written) - CHANGE OF SHIFT REPORT (ED Provider) 1 Report Given and Care Transferred to:: Dr Hsu Items Pending: Labs Departure - Departure Date of Disposition Decision: 07/15/18 Time of Disposition Decision: 07:57 DIAGNOSIS: Weakness Disposition: ADMITTED INPATIENT 09 Certified Medical Emergency: Emergent Condition: Serious - Critical Care Note This patient required my direct & personal management of CC.: No Attestation - Physician/ THEA Attestation Patient care was provided by Advanced Practice Provider:: No The physician spent face to face time with patient:: Yes Advanced Practice Provider documentation review:: Supervising physician onsite and consulted in the evaluation and care of this patient. The physician did have a face to face encounter with the patient.
[2018-07-15 06:29] LABS: POTASSIUM 4.6 mmol/L (3.5-5.1); SODIUM 139 mmol/L (136-145)
[2018-07-15 06:30] LABS: AGAP 9; CHLORIDE 104 mmol/L (98-107); COSMO 281; GLUCOSE 92 mg/dL (70-104); TCO2 26 mmol/L (25-35)
[2018-07-15 06:31] LABS: BUN 22 mg/dL (8-22); CREATININE 1.8 mg/dL (0.7-1.2)
[2018-07-15 06:32] LABS: ALBUMIN 4.3 g/dL (3.5-5.0); ALKALINE PHOSPHATASE 84 U/L (32-122); GOT 19 U/L (10-34); GPT 24 U/L (10-44)
[2018-07-15 06:33] LABS: CALCIUM 8.8 mg/dL (8.8-10.2); CK PROFILE 67 U/L (24-204); TOTAL PROTEIN 6.7 g/dL (6.3-8.3)
[2018-07-15 06:34] LABS: ALB/GLOB RATIO 1.8
[2018-07-15 06:43] LABS: BASO# 0.05 X1000 (0.0-0.2); BASO% 0.9 % (0.0-0.8); EOS# 0.11 X1000 (0.0-0.7); EOS% 2.1 % (0.0-10.0); HEMATOCRIT 35.9 % (42.0-52.0); HEMOGLOBIN 12.4 g/dL (14.0-18.0); IMM GRAN# 0.03 X1000 (0.0-0.04); IMM GRAN% 0.6 % (0.0-0.5); LYMPH# 1.78 X1000 (1.2-3.4); LYMPH% 33.5 % (20.5-51.1); MCH 32.8 PG (27-31); MCHC 34.5 g/dL (33-37); MONO# 0.57 X1000 (0.11-0.59); MONO% 10.7 % (1.7-9.3); MPV 9.5 FL (7.4-10.4); NEUT# 2.77 X1000 (1.4-6.5); NEUT% 52.2 % (42.2-75.2); PLT 243 X1000 (130-400); RBC 3.78 XMIL (4.7-6.1); RDW 13.2 % (11.5-14.5); WBC 5.31 X1000 (4.8-10.8)
[2018-07-15 06:45] LABS: INR 0.96; PROTIME 13.5 Seconds (11.0-16.0); PTT 29.5 Seconds (22.3-41.8)
--- NOTE | 2018-07-15 08:33 | Diag Imaging Result Doc PS360 ---
EXAM: CT HEAD W/O CONTRAST - 07/15/2018 HISTORY: weakness TECHNIQUE: CT head without contrast COMPARISON: 07/02/2018 FINDINGS: There is right frontal encephalomalacia with ex vacuo enlargement of the adjacent right lateral ventricle, similar to prior. There is no evidence of recent infarct, although acute infarcts may not be immediately visible. There is no evidence of intracranial hemorrhage, mass effect, or midline shift. Visualized portions of paranasal sinuses and mastoid air cells appear essentially clear. IMPRESSION: Chronic changes similar to prior. No visible acute intracranial abnormality. No hemorrhage or mass effect. This exam was performed using automated exposure control, adjustment of mA or kV according to patient size, and/or use of iterative reconstruction technique. Electronically signed by Willard Carter 07/15/2018 8:31 AM
--- NOTE | 2018-07-15 08:51 | Diag Imaging Result Doc PS360 ---
EXAM: CHEST-PORTABLE - 07/15/2018 HISTORY: ? CVA TECHNIQUE: Portable chest COMPARISON: 06/05/2018 FINDINGS: Heart size is normal. There are sternal wires from previous surgery and transvenous cardiac pacemaker again seen. There is some tortuosity of the thoracic aorta with prominence of aortic knob similar to prior. Inspiration is mildly shallow. There is some associated crowding of basilar markings. There is no dense consolidation, gross vascular congestion, pleural effusion, or pneumothorax identified. There is stable left midlung granuloma from old granulomatous disease. There is old fracture deformity of the left clavicle noted. IMPRESSION: Mildly shallow inspiration, with mild crowding of basilar markings. No discrete pneumonia. Electronically signed by Willard Carter 07/15/2018 8:49 AM
--- NOTE | 2018-07-15 11:09 | EKG Report ---
Test Performed on : 07/15/2018 04:14:01 AM Test Reason : ED. No order in [place] Blood Pressure : / mmHG Vent. Rate : 060 BPM Atrial Rate : 060 BPM P-R Int : 232 ms QRS Dur : 094 ms QT Int : 454 ms P-R-T Axes : 000 007 034 degrees QTc Int : 454 ms Sinus rhythm. with 1st degree AV block. Septal infarct , age undetermined Abnormal ECG No previous ECGs available Unconfirmed Result
[2018-07-15] MEDS ORDERED: ANTIVERT PO PRN (11:52)
[2018-07-15] MEDS ORDERED: ROBAXIN PO PRN (11:52)
[2018-07-15] MEDS ORDERED: MIRALAX PO SCH (21:00)
--- NOTE | 2018-07-15 22:07 | HISTORY AND PHYSICAL ---
HISTORY OF PRESENT ILLNESS: Mr. Jane who is a 73-year-old white gentleman was recently discharged, was doing fairly well at home. Last night he got dizzy, and thereafter he had numbness on the left side of face with drawing of the left upper arm as well as left foot, and he was concerned. He came this morning to the emergency room from where he was admitted. Initial CT scan was negative. Carotid flow studies was done last time, which was unremarkable. He has a known case of coronary artery disease, has a permanent pacemaker. He has required coronary artery bypass surgery. Besides this, he had 3 spine surgeries, and he had recently had a fracture in the left leg and then getting prosthesis. He is a known smoker. Does not drink. Has history of hypertension. MEDICATIONS: Include tamsulosin, aspirin, atorvastatin, multiple ophthalmic drops, finasteride, furosemide, Linzess, magnesium oxide, meclizine, methocarbamol, metoprolol, eloina 3 fatty acids, omeprazole, polyethylene glycol, KCl, Ranexa, sucralfate, tramadol, and zinc sulfate. REVIEW OF SYSTEMS: Other than what has been mentioned, he has some intermittent headaches. PHYSICAL EXAMINATION: VITAL SIGNS: Reveal temperature normal, pulse 60 per minute and regular, respiratory rate 14 per minute, blood pressure 118/74. HEAD: Normocephalic. EYES: Pupils PERRLA. Fundus examination normal. ENT EXAMINATION: Unremarkable. NECK: Supple. JVP normal. There is no evidence of lymphadenopathy, thyroid enlargement, pedal edema, calf tenderness, anemia, cyanosis or clubbing. Pedal pulses are well felt. BREAST EXAM: Normal. CHEST: On inspection chest reveals midline scar. It also revealed the pacemaker generator. LUNGS: Clear on auscultation. PMI in the normal position. HEART: Sounds normal. No murmur, gallop or rub noted. ABDOMEN: Nondistended. Hernial orifices normal. No guarding, rigidity, free fluid, masses, or organomegaly. Bowel sounds normal. RECTAL: Deferred. CENTRAL NERVOUS SYSTEM: Higher functions: Patient's higher functions are normal. Cranial nerves normal. Motor and sensory system examination unremarkable. Deep tendon reflexes normal. Plantars downgoing. Skull and spine examination: Normal for age. No cerebellar signs or signs of meningeal irritation. LOCOMOTOR EXAM: Unremarkable. SKIN: Unremarkable. Patient is still unsteady. PLAN: I will check him out for orthostatic hypotension. Keep him on telemetry and do the neuro checks. cc: Meño Nye MD
[2018-07-15] MEDS: FLOMAX PO SCH (22:47)
[2018-07-15] MEDS: RANEXA PO SCH (22:47)
[2018-07-15] MEDS: LIPITOR PO SCH (22:47)
[2018-07-15] MEDS: ALPHAGAN P 0.1% OPHTH SOLN BOTH EYES SCH (22:48)
[2018-07-15] MEDS: XALATAN 0.005% OPH SOLN BOTH EYES SCH (22:49)
[2018-07-15] MEDS: ULTRAM PO SCH (22:58)
[2018-07-15] MEDS: CARAFATE PO SCH (22:59)
[2018-07-16] MEDS ORDERED: LINZESS PO SCH (09:00)
--- NOTE | 2018-07-16 09:29 | PROGRESS NOTE ---
DATE: 07/16/2018 Mr. Jane is having some diarrhea. He is being checked for orthostatic hypotension. The diarrhea is severe. He has seen Dr. Stephens in the past. I am going to ask Dr. Stephens to see him for recurrent diarrhea. If something can be done over here while he is in the hospital. scan of the brain was negative. So far neurological checks are negative. We will also ask for physical therapy. cc: Meño Nye MD
--- NOTE | 2018-07-16 10:01 | PROVIDER PROGRESS NOTE ---
Progress Note Spoke to Dr. Nye in regards to consult for chronic diarrhea. Patient has both Linzess and miralax on med list. VSS. Lytes normal. No leukocytosis. Recommend holding both. If he continues to diarrhea, check stool culture, O&P, and cdiff. We will hold consult for now. I would be happy to see patient if he continues to have diarrhea after holding meds. Discussed plan with Dr. Nye.
[2018-07-16] MEDS: CARAFATE PO SCH ×2 (10:08→22:10)
[2018-07-16] MEDS: ULTRAM PO SCH ×2 (10:09→22:11)
[2018-07-16] MEDS: FISH OIL CONCENTRATE PO SCH (10:09)
[2018-07-16] MEDS: KLOR-CON PO SCH (10:09)
[2018-07-16] MEDS: LASIX PO SCH (10:09)
[2018-07-16] MEDS: RANEXA PO SCH ×2 (10:09→22:10)
[2018-07-16] MEDS: ASPIRIN PO SCH (10:09)
[2018-07-16] MEDS: MAG-OX PO SCH (10:10)
[2018-07-16] MEDS: PROSCAR PO SCH (10:10)
[2018-07-16] MEDS: ZINC SULFATE PO SCH (10:10)
[2018-07-16] MEDS: COSOPT OPHTH SOLN BOTH EYES SCH (10:10)
[2018-07-16] MEDS: PRILOSEC PO SCH (10:10)
[2018-07-16] MEDS: ALPHAGAN P 0.1% OPHTH SOLN BOTH EYES SCH ×2 (10:11→22:12)
[2018-07-16] MEDS: TOPROL XL PO SCH (10:15)
[2018-07-16] MEDS: LIPITOR PO SCH (22:11)
[2018-07-16] MEDS: FLOMAX PO SCH (22:12)
[2018-07-16] MEDS: XALATAN 0.005% OPH SOLN BOTH EYES SCH (22:13)
[2018-07-17 07:21] VITALS: BP 112/63
--- NOTE | 2018-07-17 09:44 | PROGRESS NOTE ---
DATE: 07/17/2018 Mr. Jane is doing somewhat better. He is less dizzy. His numbness on the face is somewhat better. We will discharge him today. We have stopped his Linzess and MiraLAX both, and see the response. cc: Meño Nye MD
[2018-07-17] MEDS: ALPHAGAN P 0.1% OPHTH SOLN BOTH EYES SCH (09:56)
[2018-07-17] MEDS: ZINC SULFATE PO SCH (09:57)
[2018-07-17] MEDS: KLOR-CON PO SCH (09:57)
[2018-07-17] MEDS: TOPROL XL PO SCH (09:58)
[2018-07-17] MEDS: MAG-OX PO SCH (09:58)
[2018-07-17] MEDS: PRILOSEC PO SCH (09:58)
[2018-07-17] MEDS: PROSCAR PO SCH (09:58)
[2018-07-17] MEDS: LASIX PO SCH (09:58)
[2018-07-17] MEDS: ULTRAM PO SCH (09:58)
[2018-07-17] MEDS: RANEXA PO SCH (09:58)
[2018-07-17] MEDS: ASPIRIN PO SCH (09:58)
[2018-07-17] MEDS: CARAFATE PO SCH (09:58)
[2018-07-17] MEDS: FISH OIL CONCENTRATE PO SCH (09:58)
[2018-07-17] MEDS: COSOPT OPHTH SOLN BOTH EYES SCH (09:59)
--- NOTE | 2018-07-18 06:52 | DISCHARGE SUMMARY ---
ADMISSION DATE: 07/15/2018 DISCHARGE DATE: 07/17/2018 HISTORY: Mr. Jane is a 73-year-old white gentleman was admitted with numbness of the left side of the face and dizziness. He has been having TIA's. At this time, he almost fell and says he had kind of syncopal episode. He had neurological evaluation about a week ago. Repeat CT scan was negative for any new evidence of stroke. He had chronic changes. No hemorrhage or mass effect noted. He had carotid flow studies done very recently. Chest x-ray done at this time revealed mildly shallow inspiration. No definite pneumonia was noted. EKG revealed sinus rhythm with first-degree AV block, septal infarct, age undetermined and normal EEG. COURSE IN HOSPITAL: He was watched on telemetry. Neuro checks were done. He did not have any gross neurological deficit. The numbness appeared better. He had chronic diarrhea. We tried to get a GI consult, however, it was thought that he had probably laxative induced diarrhea. He stopped the Linzess and the MiraLAX to see the response. He probably needs a colonoscopy, however, that will be done later on as an outpatient. He was seen by Dr. Smiley for the GI problems. We will discharge him today. FINAL DIAGNOSES: 1. Transient ischemic attack. 2. Chronic diarrhea. 3. Hypertension. cc: Meño Nye MD
== END 2018-07-17 11:21 | disposition home or self-care (01) ==
LOC: ED 05:54 → 4N 05:54
PROVIDERS: ADMIT Internal Medicine; ATTEND Internal Medicine
CPT/HCPCS: 70450; 71010; 71045; 80053; 80307; 80320; 82055; 82550; 84484; 85025; 85610; 85730; 93005; 97161; 99285; A9270; G0480; G6040; S0138

== ENCOUNTER 2018-08-31 00:38 | Inpatient (IN) ==
[2018-08-31] MEDS ORDERED: NS 1,000 ML IV PRN (01:06)
[2018-08-31 05:20] LABS: BASO# 0.02 X1000 (0.0-0.2); BASO% 0.3 % (0.0-0.8); EOS# 0.09 X1000 (0.0-0.7); EOS% 1.3 % (0.0-10.0); HEMATOCRIT 36.7 % (42.0-52.0); HEMOGLOBIN 12.7 g/dL (14.0-18.0); LYMPH# 1.77 X1000 (1.2-3.4); LYMPH% 25.5 % (20.5-51.1); MCH 32.2 PG (27-31); MCHC 34.6 g/dL (33-37); MCV 93.1 FL (81-99); MONO% 5.8 % (1.7-9.3); MPV 9.5 FL (7.4-10.4); NEUT# 4.66 X1000 (1.4-6.5); NEUT% 67.1 % (42.2-75.2); PLT 211 X1000 (130-400); RBC 3.94 XMIL (4.7-6.1); RDW 12.7 % (11.5-14.5); WBC 6.94 X1000 (4.8-10.8)
[2018-08-31 05:28] LABS: INR 0.96; PROTIME 13.5 Seconds (11.0-16.0); PTT 29.7 Seconds (22.3-41.8)
[2018-08-31 05:52] LABS: ALB/GLOB RATIO 1.7; ALBUMIN 3.9 g/dL (3.5-5.0); CALCIUM 8.6 mg/dL (8.8-10.2); CREATININE 1.5 mg/dL (0.7-1.2); POTASSIUM 4.5 mmol/L (3.5-5.1); TOTAL BILIRUBIN 0.44 mg/dL (0.20-1.00); TOTAL PROTEIN 6.2 g/dL (6.3-8.3)
--- NOTE | 2018-08-31 06:10 | PROVIDER DOCUMENTATION ---
This chart was entered by Anupama Huang Scribe, acting as scribe for Wilbert Samaniego MD. HPI-General Adult - General Chief Complaint: Weakness Stated Complaint: "MINI STROKE" Time Seen by Provider: 08/31/18 00:56 Source: patient Allergies/Adverse Reactions: Patient Allergies Allergy/AdvReac Type Severity Reaction Status Date / Time meperidine HCl * Allergy Unknown ANAPHYLAXIS Verified 10/11/17 22:13 [From Demerol] NSAIDS (Non-Steroidal AdvReac Unknown Verified 10/11/17 22:13 Anti-Inflamma Home Medications: Home Medication List Medication Instructions Recorded Confirmed Last Taken Type ATORVAstatin [Lipitor] 80 mg PO HS 03/25/12 07/15/18 07/01/18 17:00 History Tamsulosin HCl 0.4 mg PO QHS 03/25/12 07/15/18 07/01/18 17:00 History Potassium Chloride 10 meq PO DAILY #30 tablet.er 04/16/12 07/15/18 07/01/18 09:00 Rx Furosemide [Lasix] 20 mg PO DAILY 05/29/14 07/15/18 07/01/18 09:00 History Latanoprost 0.005% Oph Soln 1 drop BOTH EYES HS 10/20/14 07/15/18 07/01/18 17:00 History [Xalatan 0.005% Oph Soln] Ranolazine E.r. [Ranexa] 1,000 mg PO BID 09/13/16 07/15/18 07/01/18 17:00 History Brimonidine 0.1% Ophth Soln 1 drop OP BID 10/05/17 07/15/18 07/01/18 17:00 History [Alphagan P 0.1% Ophth Soln] Dorzolamide HCl/Timolol Maleat 1 drop OP DAILY 10/05/17 07/15/18 07/01/18 09:00 History [Dorzolamide-Timolol Eye Drops] Finasteride 5 mg PO DAILY 10/05/17 07/15/18 07/01/18 09:00 History Aspirin 81 mg PO DAILY chewtab 04/10/18 07/15/18 07/01/18 17:00 Rx Metoprolol Succinate E.r. [Toprol 50 mg PO DAILY tablet 04/10/18 07/15/18 07/01/18 17:00 Rx Xl] Magnesium Oxide [Magnesium] 400 mg PO DAILY 06/22/18 07/15/18 07/01/18 09:00 History [place]-3 Fatty Acids/Fish Oil [Fish 1 cap PO DAILY 06/22/18 07/15/18 07/01/18 09:00 History Oil 1,000 mg Capsule] Omeprazole 1 cap PO DAILY 06/22/18 07/15/18 07/01/18 09:00 History Zinc 50 mg PO DAILY 06/22/18 07/15/18 07/01/18 17:00 History Methocarbamol [Robaxin-750] 750 mg PO PRN PRN 07/02/18 07/15/18 07/01/18 17:00 History Sucralfate 1 gm PO BID 07/02/18 07/15/18 07/01/18 17:00 History Tramadol [Ultram] 50 mg PO BID 07/02/18 07/15/18 07/01/18 17:00 History Meclizine HCl [Antivert] 25 mg PO HS PRN #15 tab 07/04/18 07/15/18 Unknown Rx - History of Present Illness -Gen Adult Nature of Presenting Problems: Pt is 73/m presenting to ED w/ c/o weakness in bilat lower extremities, blurred vision and "hung over feeling" as he describes, as well as nausea. Sx started at 11:00 pm tonight. Pt has hx of 3 strokes in the past. Pt is not on blood thinners, but does take a daily aspirin. Hx of HTN, AAA and 3 strokes. Location of Pain/Injury: reports: lower extremity Pain Radiation: reports: no radiation Quality of Pain: reports: other (weakness) Severity: reports: moderate Onset/Duration: reports: 1-3 hours ago Timing: reports: still present Context/Activities at Onset: reports: none Modifying Factors: improves with: nothing Associated Symptoms: reports: denies symptoms Similar Symptoms Previously?: Yes Recently seen or treated by another doctor?: No Review of Systems - Adult - REVIEW OF SYSTEMS - ADULT Constitutional: reports: no symptoms reported. denies: chills, fever Eyes: reports: no symptoms reported Ears, Nose, Mouth & Throat: reports: no symptoms reported Cardiovascular: reports: no symptoms reported. denies: chest pain Respiratory: reports: no symptoms reported. denies: cough, shortness of breath, wheezing Gastrointestinal: reports: nausea. denies: abdominal pain, diarrhea, vomiting Genitourinary: reports: no symptoms reported Musculoskeletal: reports: no symptoms reported Integumentary: reports: no symptoms reported Neurological: denies: dizziness/vertigo, headache/migraines, slurred speech Psychiatric: reports: no symptoms reported Endocrine: reports: no symptoms reported Hematologic/Lymphatic: reports: no symptoms reported Allergic/Immunologic: reports: no symptoms reported All Other Systems: Reviewed and Negative Past History - Adult - PAST MEDICAL HISTORY-ADULT Review of Records: reports: Old Records Reviewed, Nursing Assessment Review, Medications Reviewed, Social history reviewed & non-contributory. Major Childhood Illnesses: reports: denies history Cardiovascular: reports: aortic disease (AAA), CAD, HTN, hyperlipidemia Respiratory: reports: denies history Gastrointestinal: reports: other (abdominal aortic aneurysm) Obstetrical/Gynecological: reports: denies history Genitourinary: reports: kidney disease, kidney stones Musculoskeletal: reports: chronic pain (back pain), intervertebral disc disease Neurological: reports: CVA, stroke deficits, other Psychiatric: reports: denies history Endocrine/Immune: reports: denies history Other Conditions: reports: denies history - PRIOR SURGERIES/PROCEDURES Surgical/Procedure History: reports: appendectomy, CABG, cholecystectomy, orthopedic (extremity), other (AAA repair) - PRIOR HOSPITALIZATIONS Prior Hospitalizations: reports: for other non-related - IMMUNIZATION STATUS Childhood Immunizations: See Nurse Assessment Flu Vaccine: See Nurse Assessment - FAMILY HISTORY Family History: CAD over 55 yo, other (CHF) - SOCIAL HISTORY Smoking: quit greater than 1 year Substance Use: none/never Alcohol Use Frequency: never Living Situation: family Physical Exam-General - PHYSICAL EXAM-ADULT Initial Vital Signs Reviewed: Yes - CONSTITUTIONAL General Appearance: appears well, alert, no apparent distress - EYES Eyes: PERRL/EOMI, pink conjunctivae - HEAD, EARS, NOSE, MOUTH & THROAT HENMT: normocephalic/atraumatic, moist mucous membranes, normal ENT inspection, TMs normal, pharynx normal - NECK Neck: non-tender, full range of motion, supple, normal inspection - RESPIRATORY Respiratory: lungs clear - CARDIOVASCULAR Cardiovascular: bradycardia (59) - GASTROINTESTINAL (ABDOMEN) Abdominal Exam: normal bowel sounds, non tender, soft - LYMPHATIC Lymphatic: no adenopathy - MUSCULOSKELETAL Back Exam: normal inspection - SKIN Integumentary: normal color, warm/dry - 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 negative: facial droop - PSYCHIATRIC Psych/Mental Status: normal mood/affect, normal thought content, normal thought process, oriented x 3 Progress - PLAN OF CARE/RESULTS Progress/Plan/Lab Results: Vital Signs - 8 hr 08/31/18 00:44 08/31/18 01:12 Temperature 98.9 F Pulse Rate 59 L 68 Respiratory Rate 20 18 Blood Pressure 138/76 157/77 O2 Sat by Pulse Oximetry 98 96 Orders Category Date Time Status Cardiac Monitoring DIRECTED Care 08/31/18 01:06 Active Finger Stick Blood Sugar (ED) DIRECTED Care 08/31/18 01:06 Active Misc. NRSG Communication Order DIRECTED Care 08/31/18 01:06 Active Oxygen Therapy- ED Nursing DIRECTED Care 08/31/18 01:06 Active Saline Loc NOW Care 08/31/18 01:06 Active CHEST-PORTABLE [RAD] Stat Exams 08/31/18 01:[address] HEAD W/O CONTRAST [CT] Stat Exams 08/31/18 01:06 Ordered CBC WITH ELECTRONIC DIFF [HEME] Stat Lab 08/31/18 01:06 Uncollected COMPREHENSIVE METABOLIC PANEL [CHEM] Stat Lab 08/31/18 01:06 Uncollected PROTIME WITH INR [COAG] Stat Lab 08/31/18 01:06 Uncollected PTT [COAG] Stat Lab 08/31/18 01:06 Uncollected TROPONIN T Stat Lab 08/31/18 01:06 Uncollected URINALYSIS W/POSS RFLX CULT [URINALYSIS] Stat Lab 08/31/18 01:06 Uncollected URINE DRUG SCREEN Stat Lab 08/31/18 01:06 Uncollected 0.9% Sodium Chloride Inj [Ns] 1,000 ml Med 08/31/18 01:06 Active IV 150 mls/hr EKG [EKG] Stat Ther 08/31/18 01:06 Ordered Result Diagrams: 08/31/18 05:06 08/31/18 05:06 - REASSESSMENT Reassessment #1 Time Reassessed: 02:40 (no labs results yet) - EKG 1 Time of EKG reading by physician:: 02:00 EKG Read and Signed by:: Wilbert Samaniego EKG Interpretation (*Must complete 3 of following elements*): Abnormal Rate: 60 Rhythm: junctional [place]: normal QRS: poor R wave progression ST Wave: normal - XRAY 1 XRAY Study: Chest Impression: Normal - CT/MRI 1 CT Study: Head Impression: Abnormal (mild R encephalomalecia, no acute hemorrhage, no acute infarct) - CONSULTS/PCP/HOSPITALIST Notification #1 *Consult/PCP/Hospitalist*: Pete Time Discussed: 06:05 Consult Disposition: Will see in ED, Admit Departure - Departure Date of Disposition Decision: 08/31/18 Time of Disposition Decision: 03:00 DIAGNOSIS: TIA (transient ischemic attack) Disposition: ADMITTED INPATIENT 09 Certified Medical Emergency: Emergent Condition: Good Additional Freetext Instructions: ED Follow Up Instructions: You have been treated by a care provider in the Emergency Department. These instructions are being provided to you so you can have an understanding of how to care for yourself upon discharge. Upon discharge from the Emergency Department, you are responsible for making arrangements for follow-up care by a physician of your choice. Take all prescribed medications as directed. Return to the Emergency Department immediately for any new or worsening symptoms. You may call the Physician Referral phone number at [phone] to obtain a list of Physicians who are taking new patients. Referrals and Follow-Ups: Meño Nye MD [Primary Care Provider] - - Critical Care Note This patient required my direct & personal management of CC.: No Attestation - Physician/ THEA Attestation Patient care was provided by Advanced Practice Provider:: No The physician spent face to face time with patient:: Yes Advanced Practice Provider documentation review:: Supervising physician onsite and consulted in the evaluation and care of this patient. The physician did have a face to face encounter with the patient. - NIH Stroke Scale NIH Type: Initial Evaluation Level of Consciousness: 0-Alert LOC Questions (ask month and age): 0-Answers Both Correctly LOC Commands (ask to open & close eyes;make a fist, let go): 0-Obeys Both Correctly Best Gaze (horizontal eye movement): 0-Normal Visual (use finger movement, counting or visual threat): 0-No Visual Loss Facial Palsy (show teeth or raise eyebrows & close eyes tght: 0-Symmetrical Movement Motor Function-left arm: 0-Untestable Motor Function-right arm: 0-Normal Motor Function-left le-Normal Motor Function-right le-Normal Limb Ataxia(awidmv-teyf-kkveup, or heel to alejo): 0-No Ataxia Sensory(pin prick to face,arms,trunk,legs-compare side/side): 0-No Ataxia Best Language(name item/read sentence.Ex-Down to Earth): 0-No Aphasia Dysarthria(Pt read words or say words Ex.Mama,Tip-Top,Thanks: 0-Normal Articulation Extinction and Inattention: 0-Normal Modified Haydee Score Criteria: 0-no symptoms This chart was documented by the indicated scribe, (Anupama Huang, Scribe) and accurately reflects the services I performed and decisions made by me, Wilbert Samaniego MD, as attested by the provider's signature.
--- NOTE | 2018-08-31 07:00 | HISTORY AND PHYSICAL ---
PRIMARY CARE PHYSICIAN: Dr. Nye. CHIEF COMPLAINT: Right-sided weakness. HISTORY OF PRESENTING ILLNESS: A 73-year-old male with a history of hyperlipidemia, hypertension, coronary artery disease, CVA, and left foot drop, who had presented to the emergency department with a 1-day history of having right-sided weakness. He states that he had a previous CVA in the past, and he is weak on his left side, but it seemed that earlier today, he was more weak on his right side, and he was stumbling and almost fell. He was brought to the emergency department, and due to his presenting symptoms, it was thought that he would need admission for stroke workup. At the time of my examination, the patient denied any headache, fever, chills, chest pain, shortness of breath, hemoptysis, or weight changes, just complained of right-sided weakness, which has improved. PAST MEDICAL HISTORY: Includes hyperlipidemia, hypertension, coronary artery disease, CVA, left foot drop. PAST SURGICAL HISTORY: Pacemaker, coronary bypass, AAA repair, cholecystectomy, appendectomy, hernia repair, back surgery, cervical fusion, left knee surgery. ALLERGIES: Demerol. CURRENT MEDICATIONS: Aspirin 81 mg p.o. daily, atorvastatin 80 mg p.o. at bedtime, finasteride 5 mg p.o. daily, Lasix 20 mg p.o. daily, Xalatan eyedrops to both eyes at bedtime, meclizine 25 mg p.o. at bedtime, Toprol-XL 50 mg p.o. daily, omeprazole 20 mg p.o. daily, Ranexa 1000 mg p.o. b.i.d., sucralfate 1 gram p.o. b.i.d., tamsulosin 0.4 mg p.o. at bedtime, tramadol 50 mg p.o. b.i.d. SOCIAL HISTORY: He is a former smoker. No history of alcohol or illicit drug use. FAMILY HISTORY: No history of coronary artery disease. REVIEW OF SYSTEMS: A 14-point review of systems is as in HPI, other systems negative. PHYSICAL EXAMINATION: GENERAL: Cooperative, friendly male. He is resting comfortably now. VITAL SIGNS: Temperature 98.9 degrees, pulse 59, respirations 20, blood pressure 138/76. HEENT: Atraumatic, normocephalic. Extraocular movements intact. PERRLA. NECK: No masses. CHEST: Clear to auscultation. CARDIOVASCULAR: Regular rate and rhythm. ABDOMEN: Soft. Positive bowel sounds. EXTREMITIES: No edema. There is a brace on the left leg to help with his ankle drop. GENITOURINARY: No bladder distention. SKIN: Warm. LABORATORIES AND STUDIES: WBC 6.94, hemoglobin 12.7, hematocrit 36.7, platelets 211,000. Sodium 140, potassium 4.5, chloride 104, CO2 is 33, BUN is 17, creatinine 1.5, glucose is 110. CT of the head is unremarkable as per ER physician. ASSESSMENT: A 73-year-old male with a previous history of cerebrovascular accident with left- sided deficit, coronary artery disease, hypertension, hyperlipidemia, who had presented to the emergency department with complaint of right-sided weakness. He states that he was stumbling and nearly fell. The patient was evaluated in the emergency department, and due to his presenting symptoms, he will need admission for further management. ASSESSMENT: 1. Suspected transient ischemic attack. Will need to rule out cerebrovascular accident. 2. Coronary artery disease. 3. Hyperlipidemia. 4. Hypertension. PLAN: 1. Will admit the patient to medical floor with telemetry. 2. Continue with stroke workup. 3. Will consult Neurology. 4. The patient had a recent carotid duplex last month, which was unremarkable. 5. He is unable to do MRI due to pacemaker. 6. Will resume his home medications. 7. Maximize medical therapy. 8. Will monitor blood pressure closely. 9. Will continue to follow and reassess and make further recommendation based on the patient's clinical course. cc: Luis F Freeman MD
--- NOTE | 2018-08-31 08:48 | Diag Imaging Result Doc PS360 ---
CHEST-PORTABLE - 08/31/2018 INDICATION: stroke like symptoms COMPARISON: 07/15/2018 FINDINGS: Stable sternotomy changes and pacemaker. Heart size and pulmonary vascularity is top normal. No infiltrates or edema. No large pleural effusion. IMPRESSION: No acute disease. Electronically signed by Car Miller 08/31/2018 8:46 AM
--- NOTE | 2018-08-31 09:00 | Diag Imaging Result Doc PS360 ---
CT HEAD W/O CONTRAST - 08/31/2018 INDICATION: stroke like symptoms COMPARISON: 07/15/2018 FINDINGS: Stable old stroke in the right cerebral hemisphere periventricular white matter. Stable lacunae in the right basal ganglia and mild left chronic microvascular disease. No intracranial mass or hemorrhage. The skull is intact. The sinuses are clear. IMPRESSION: No acute disease or change from prior. This exam was performed using automated exposure control, adjustment of mA or kV according to patient size, and/or use of iterative reconstruction technique Electronically signed by Car Miller 08/31/2018 8:57 AM
[2018-08-31] MEDS ORDERED: ANTIVERT PO PRN (17:34)
[2018-08-31] MEDS ORDERED: ROBAXIN PO PRN (17:34)
--- NOTE | 2018-08-31 18:09 | PROGRESS NOTE ---
DATE: 08/31/2018 SUBJECTIVE: A 73-year-old white gentleman, admitted with unsteady gait. The patient does have a history of CVA, left-sided weakness, left footdrop. Patient claims he was not feeling well since yesterday. He has more weakness and numbness right side. The patient is very vague and poor historian. Came to the emergency room. Evaluated by the ER physician. There was question about TIA. The patient was admitted for further care. His CT scan: No acute disease or changes from prior. The patient denied any dysuria or hematuria. No dysphagia or odynophagia. Admission history and physical noted. OBJECTIVE: Vital Signs: He has blood pressure on admission 138/76, pulse 59, respirations 20, temperature 98.9 degrees. Skin: Senile turgor. Neck: Supple. No JVD. Lungs: Bibasilar crepitations. Heart: S1 and S2 heard. Abdomen: Soft, globular. Bowel sounds present. Central Nervous System: Alert, awake. Answering questions fair. Patient does have left foot drop. Straight leg raising about 40 degrees on the left, 55 degrees on the right. The patient does have weakness in the left upper limb, which is chronic. CONSIDERATION: 1. Transient ischemic attack versus cerebrovascular accident. 2. The patient does have a history suggestive of hypertension. 3. Hyperlipidemia. 4. Coronary artery disease. PLAN: Admit the patient. Neurological check. Fall precaution. Neurology consultation. Overall plan discussed with the patient, and he is in agreement. We will resume his home medicine. Dr. Nye will follow patient from tomorrow. cc: MD Meño Dumont MD
[2018-08-31] MEDS: RANEXA PO SCH (20:16)
[2018-08-31] MEDS: CARAFATE PO SCH (20:16)
[2018-08-31] MEDS: FLOMAX PO SCH (20:16)
[2018-08-31] MEDS: LIPITOR PO SCH (20:16)
[2018-08-31] MEDS: ULTRAM PO SCH (20:16)
[2018-08-31] MEDS: ALPHAGAN P 0.1% OPHTH SOLN OPH SCH (20:17)
[2018-08-31] MEDS: XALATAN 0.005% OPH SOLN BOTH EYES SCH (20:17)
[2018-08-31 22:53] LABS: URINE SOURCE CLEAN CATCH
[2018-08-31 23:20] LABS: BILIRUBIN URINE NEGATIVE (NEGATIVE); BLOOD URINE NEGATIVE (NEGATIVE); GLUCOSE URINE NEGATIVE (NEGATIVE); KETONE URINE NEGATIVE (NEGATIVE); NITRITE URINE NEGATIVE (NEGATIVE); PROTEIN URINE NEGATIVE (NEGATIVE); SP GRAVITY URINE 1.004; TURBIDITY URINE CLEAR (CLEAR); UR EPITHELIAL CELLS <10 /HPF (<10); URINE BACTERIA NEGATIVE /HPF; URINE RBC <10 /HPF (<10); URINE WBC <10 /HPF (<10); UROBILINOGEN URINE NORMAL (NORMAL)
[2018-08-31 23:21] LABS: LEUKOCYTES URINE NEGATIVE (NEGATIVE)
[2018-08-31 23:31] LABS: COLOR STRAW; UR AMPHETAMINES QUAL NONE DETECTED (NONE DETECT); UR BARBITUATES QUAL NONE DETECTED (NONE DETECT); UR BENZODIAZEPIN QUAL NONE DETECTED (NONE DETECT); UR CANNABINOIDS QUAL NONE DETECTED (NONE DETECT); UR COCAINE QUAL NONE DETECTED (NONE DETECT); UR METHADONE QUAL NONE DETECTED (NONE DETECT); UR OPIATES QUAL NONE DETECTED (NONE DETECT); UR OXYCODONE QUAL NONE DETECTED (NONE DETECT); UR PCP QUAL NONE DETECTED (NONE DETECT)
[2018-09-01] MEDS: PRILOSEC PO SCH (06:09)
[2018-09-01 06:59] LABS: BASO# 0.04 X1000 (0.0-0.2); BASO% 0.6 % (0.0-0.8); EOS# 0.16 X1000 (0.0-0.7); EOS% 2.5 % (0.0-10.0); HEMATOCRIT 36.1 % (42.0-52.0); HEMOGLOBIN 12.4 g/dL (14.0-18.0); LYMPH# 1.82 X1000 (1.2-3.4); LYMPH% 28.4 % (20.5-51.1); MCHC 34.3 g/dL (33-37); MONO# 0.56 X1000 (0.11-0.59); MONO% 8.8 % (1.7-9.3); MPV 9.5 FL (7.4-10.4); NEUT# 3.82 X1000 (1.4-6.5); NEUT% 59.7 % (42.2-75.2); PLT 213 X1000 (130-400); RBC 3.88 XMIL (4.7-6.1); RDW 12.9 % (11.5-14.5)
[2018-09-01 07:27] LABS: CALCIUM 8.6 mg/dL (8.8-10.2); CREATININE 1.7 mg/dL (0.7-1.2); POTASSIUM 4.1 mmol/L (3.5-5.1)
--- NOTE | 2018-09-01 07:56 | EKG Report ---
Test Performed on : 08/31/2018 01:55:05 AM Test Reason : Stroke like symptoms Blood Pressure : / mmHG Vent. Rate : 060 BPM Atrial Rate : 241 BPM P-R Int : 000 ms QRS Dur : 086 ms QT Int : 458 ms P-R-T Axes : 000 019 042 degrees QTc Int : 458 ms Junctional rhythm. Septal infarct (cited on or before 15-JUL-2018) Abnormal ECG When compared with ECG of 15-JUL-2018 04:14, (Unconfirmed) Junctional rhythm. has replaced Sinus rhythm. Unconfirmed Result
[2018-09-01] MEDS: PROSCAR PO SCH (08:38)
[2018-09-01] MEDS: LASIX PO SCH (08:38)
[2018-09-01] MEDS: RANEXA PO SCH ×2 (08:38→21:27)
[2018-09-01] MEDS: KLOR-CON PO SCH (08:38)
[2018-09-01] MEDS: CARAFATE PO SCH ×2 (08:38→21:27)
[2018-09-01] MEDS: MAG-OX PO SCH (08:38)
[2018-09-01] MEDS: FISH OIL CONCENTRATE PO SCH (08:38)
[2018-09-01] MEDS: ZINC SULFATE PO SCH (08:38)
[2018-09-01] MEDS: ASPIRIN PO SCH (08:38)
[2018-09-01] MEDS: ULTRAM PO SCH (08:39)
[2018-09-01] MEDS: TOPROL XL PO SCH (08:40)
[2018-09-01] MEDS: ALPHAGAN P 0.1% OPHTH SOLN OPH SCH ×2 (08:47→21:27)
[2018-09-01] MEDS: COSOPT OPHTH SOLN OPH SCH (08:48)
--- NOTE | 2018-09-01 14:32 | CONSULTATION ---
DATE OF CONSULTATION: 09/01/2018 Mr. Jane reports having an episode of dizziness and lightheadedness 2 days ago. He reports his vision had seemed blurred for half an hour or so, but there was no focal vision loss. He did not lose vision completely. He sat on the toilet, strained a little bit, began to stand, and felt lightheaded "like I was about to blackout." He rested and continued to have lightheadedness when he attempted to stand. He did not ever lose consciousness. He believes there was no altered awareness or memory gap. He felt "weak all over," and this always results in a sense of right- sided weakness because of his chronic left hemiparesis. On detailed questioning, he is not able to report to me now that there was absolutely definite new focal right-sided weakness. He does not recall having headache. Initial systolic blood pressures ranged 130s to 150s and blood pressure has come down to mostly 100 systolic now. Heart rate has ranged 50s to 60s. He has been afebrile here. CT scan this admission without contrast shows old changes, nothing new, no bleeding. 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 He has a complicated past neurologic history as detailed in previous notes. He had gradual onset of left-sided weakness beginning in his teens. He has had some unsteady gait and chronic footdrop since then. He has had occasional falls, possibly with orthopedic injuries which aggravated his baseline gait difficulty. In more recent years, he has had some periods of altered awareness, dizziness, possibly unconsciousness, but no definite seizure or stroke. His medication list includes 19 home medicines. He told me he takes some of them, but not all of them. The home medicine list includes daily aspirin. 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 On exam, Mr. Jane is awake, alert, attentive. He answered questions appropriately. He recognized me from the hospital consult a few months ago. Speech is a little bit more brisk today than when I saw him a few months ago. He is oriented to all parameters. Recent and remote memory are good. Head and neck are unremarkable. Visual simpson are full tested grossly by confrontational finger counting. Extraocular movements are full. There is not significant nystagmus. Left nasolabial fold continues slightly less prominent than the right, but he has good facial motility over the upper and lower face bilaterally. I did not test sensation or gait. He does well on finger-to- nose testing bilaterally. Tone is increased in the left limbs as before. He cannot dorsiflex the left foot. He has good dorsiflexion in the right foot. IMPRESSION: The recent episode sounds like lightheadedness primarily. He has mild anemia which seems near baseline this admission, significantly improved compared to much more prominent findings in 2015. EKG this admission showed junctional rhythm. Blood pressures have not been low here. Creatinine this admission is a little bit above his prior baseline, but BUN is not elevated. I would continue with hydration and physical therapy. He told me he thinks he is at his baseline now. I do not have anything to add from Neurology standpoint. If he has more focal neurologic problems, we might consider repeat imaging. If he has more episodes of altered awareness, we might consider EEG. Either of these could be done later as an outpatient. Thanks for asking Neurology to see Mr. Jane. cc: MD Meño Israel III, MD MTDD
--- NOTE | 2018-09-01 18:09 | PROGRESS NOTE ---
DATE: 09/01/2018 SUBJECTIVE: Mr. Jane was admitted on 08/31/2018 for a possible TIA as he had some blurred vision which lasted for 4 to 5 hours. At present he does not have blurred vision. No weakness in the extremities. He was dizzy when he came in. He is slightly anemic. OBJECTIVE: Lungs are clear. Heart sounds are normal. Abdomen is soft, nontender. DIAGNOSTIC STUDIES: INR is normal. ASSESSMENT AND PLAN: He has a mild touch of renal failure and dehydration, which are getting better. We will discharge him tomorrow if he feels better. He had neurological evaluation done today. The CT scan of the head was unremarkable. cc: Meño Nye MD
[2018-09-01] MEDS: FLOMAX PO SCH (21:27)
[2018-09-01] MEDS: LIPITOR PO SCH (21:27)
[2018-09-01] MEDS: XALATAN 0.005% OPH SOLN BOTH EYES SCH (21:28)
[2018-09-02] MEDS: ULTRAM PO SCH ×2 (05:03→09:03)
[2018-09-02] MEDS: PRILOSEC PO SCH (06:05)
[2018-09-02 08:16] VITALS: BP 109/58
--- NOTE | 2018-09-02 08:50 | PROGRESS NOTE ---
DATE: 09/02/2018 SUBJECTIVE: Mr. Jane is doing better. Vital signs are stable. He does not have any dizziness or blurred vision. No neurological focal signs noted. PLAN: We will discharge him today. cc: Meño Nye MD
[2018-09-02] MEDS: ZINC SULFATE PO SCH (09:03)
[2018-09-02] MEDS: KLOR-CON PO SCH (09:03)
[2018-09-02] MEDS: RANEXA PO SCH (09:03)
[2018-09-02] MEDS: PROSCAR PO SCH (09:03)
[2018-09-02] MEDS: LASIX PO SCH (09:03)
[2018-09-02] MEDS: TOPROL XL PO SCH (09:03)
[2018-09-02] MEDS: MAG-OX PO SCH (09:03)
[2018-09-02] MEDS: FISH OIL CONCENTRATE PO SCH (09:04)
[2018-09-02] MEDS: CARAFATE PO SCH (09:04)
[2018-09-02] MEDS: ASPIRIN PO SCH (09:04)
[2018-09-02] MEDS: COSOPT OPHTH SOLN OPH SCH (09:45)
[2018-09-02] MEDS: ALPHAGAN P 0.1% OPHTH SOLN OPH SCH (09:45)
--- NOTE | 2018-09-02 20:12 | DISCHARGE SUMMARY ---
ADMISSION DATE: 08/31/2018 DISCHARGE DATE: 09/02/2018 Mr. Jane was admitted with dizziness and blurred vision, possible TIA. He also had mild dehydration and anemia, which was around 12.[address] scan of the head was unremarkable except for mild chronic left-sided microvascular changes, old stroke in the right cerebellar hemisphere. Chest x-ray did not reveal any acute disease. The hemoglobin was 12.7 and 12.4 at two different times. INR was 0.926. Chemistry and electrolytes were normal. Creatinine was elevated to 1.5 and 1.7. Liver enzymes were normal. Troponin was negative. His vital signs have been stable. Blood pressure was slightly low. It was 109/58. His dizziness is better today. He is not getting any new medications today. FINAL DIAGNOSES: 1. Possible transient ischemic attack. 2. Mild dehydration. 3. Anemia. 4. History of hypertension. 5. Patient has a permanent pacemaker. cc: Meño Nye MD
== END 2018-09-02 10:04 | disposition home health service (06) | DRG 69 ==
LOC: ED 00:38 → 3N 07:29
PROVIDERS: ADMIT Internal Medicine; ATTEND Internal Medicine
CPT/HCPCS: 70450; 71010; 71045; 80048; 80053; 80061; 80101; 80301; 80307; 80324; 80345; 80346; 80353; 80358; 80361; 80365; 81001; 82948; 83721; 83992; 84484; 85025; 85610; 85730; 93005; 97116; 97162; A9270; G0431; G0434; G0479; G0480; J7030; S0138; XXXXX